=== PATIENT | male | born 1980 | race Caucasian/White ===

== ENCOUNTER 2018-11-25 11:45 | Emergency (ER) | payer MEDICAID, SELFPAY ==
[2018-11-25 11:48] VITALS: BP 140/81; PULSE 85; RESP 18; TEMP 37.2; O2SAT 97
--- NOTE | 2018-11-25 12:40 | DI.RAD_ITS ---
SYMPTOMS/DIAGNOSIS: TRAUMA, PAIN TO LATERAL METACARPAL, PAIN TO ANTERIOR ANKLE AFTER BLUNT TRAUMA RIGHT ANKLE: Three views. No acute fracture or dislocation is identified. RIGHT HAND: Three views. Comparison 06/18/16. There is a comminuted fracture of the mid shaft of the right metacarpal. The distal fracture is displaced medially approximately one-half shafts width. There is also dorsal displacement. There is volar angulation of the fracture noted. There is associated soft tissue swelling. No other fracture or dislocation is present. IMPRESSION: Comminuted fracture of the right fourth metacarpal.
--- NOTE | 2018-11-25 13:35 | ED.GENADUL_ITS ---
Discharge Plan Disposition Patient Disposition: HOME Condition: Stable Discharge Details Chief Complaint: Orthopedic Clinical Impression: Fracture of fourth metacarpal bone of right hand, Contusion of ankle, right Primary Care Provider: Ike Herrera ED Provider: Helder Max Home Meds and New Rx's Prescriptions: No Action bupropion HCl [Wellbutrin] 100 MG tablet 450 mg PO DAILY RF: 0 Discharge Instructions Instructions: Contusion in Adults (ED), Boxer Fracture (ED) Additional Instructions: He may continue to take [id number] pain medication such as 600 of ibup rofen along with 1000 mg of acetaminophen at the same time every 6 hours. You may apply ice to help with swelling and return for any new or significant worsening of symptoms otherwise call the orthopedic office on Wednesday for arrangement of follow-up appointment Referrals: Sergio Kumar MD [ [facility] STAFF PHYSICIAN] - (Please call the orthopedic office on Wednesday for arrangement of follow-up appointment) Discharge Data Discharge Date/Time-TO BE ENTERED AT DEPARTURE: 11/25/18 14:16 Medical Decision Making Patient had disagreement this morning and punched a door and kicked a desk. Patient has tenderness to the anterior ankle without any other obvious signs of trauma and patient is ambulatory and weightbearing. Patient's right hand does have tenderness to the fourth and fifth midshaft metacarpal. Patient has reported previous fracture to similar area but given tenderness and mechanism of injury plan to do radiological imaging of the ankle and hand to rule out acute fracture Review of imaging shows a displaced fourth metacarpal fracture. no acute ankle findings. Physical exam shows no rotation to the finger so patient placed in orthoglass boxers splint and put on orthopedic follow-up list. HPI General Mode of arrival: ambulatory . Date/Time Provider Initiated Documentation: 11/25/18 11:55 . Limitations to Documentation: no limitations . Information obtained by: patient and RN notes reviewed . History of Present Illness 38 year old M presents to the emergency department with the chief complaint of right hand injury, right foot injury, described as moderate, with intensity rated at 6. Quality is described as aching, and is localized to the right, upper extremity and lower extremity. Patient started experiencing this hour(s) (4) and it has been constant. No relieving factors improve symptom(s), Patient notes no other symptoms.. Patient did receive the following treatments prior to arrival, none Related Data Home Medications Medication Instructions Recorded Confirmed bupropion HCl [Wellbutrin] 450 mg PO DAILY 08/27/12 11/25/18 Allergies Allergy/AdvReac Type Severity Reaction Status Date / Time No Known Allergies Allergy Unverified 11/25/18 11:53 General Stated Complaint: Orthopedic PAULA: 3 Review of Systems Musculoskeletal Reports as per HPI, Denies numbness and Denies tingling Integumentary/Breasts Denies rash, Denies sores and Denies wounds Neurologic Denies numbness and Denies tingling PFSH Social History Smoking/Tobacco Use Status: Current every day Alcohol Intake: never Drug use: Current Sobriety Do you feel safe at home: Yes Do you feel safe in your relationship?: Yes Exam Const General: cooperative and no acute distress Orientation: alert, awake and oriented x3 Resp Effort & Inspection: normal respiratory effort and able to speak in complete sentences Cardio Rate: regular rate Rhythm: regular rhythm Extrem Right upper extremity: elbow/forearm Details: normal to inspection and normal ROM; no tenderness, wrist Details: normal to inspection and normal ROM; no tenderness and hand Details: neuromotor exam normal, neurosensory exam normal, tenderness Location: of the dorsal hand Location: over the 4th metacarpal and over the 5th metacarpal, vascular exam Details: radial pulse present and normal capillary refill, abnormal ROM of finger Details: pain with active ROM Location: of the 3rd digit, of the 4th digit and of the 5th digit and swelling Location: of the dorsal hand Location: over the 3rd metacarpal, over the 4th metacarpal and over the 5th metacarpal Right lower extremity: knee Details: normal to inspection; no tenderness, ankle Details: normal to inspection, tenderness Location: anteriorly and normal ROM; no swelling, edema, no abrasions, no lacerations and no ecchymosis and foot Details: normal capillary refill, normal to inspection and toes with normal ROM; no tenderness Course Vital Signs Temperature 37.2 C 11/25/18 11:48 Pulse 85 11/25/18 11:48 Respiratory Rate 18 11/25/18 11:48 Blood Pressure 140/81 11/25/18 11:48 Pulse Oximetry 97 11/25/18 11:48 Temperature 37.2 C 11/25/18 11:48 Temperature Source Skin 11/25/18 11:48 Pulse 85 11/25/18 11:48 Respiratory Rate 18 11/25/18 11:48 Respiratory Effort 11/25/18 11:54 Blood Pressure 140/81 11/25/18 11:48 Blood Pressure Position Sitting 11/25/18 11:48 Pulse Oximetry 97 11/25/18 11:48 Oxygen Delivery Method Room Air 11/25/18 11:48 Oxygen Flow Rate 0 11/25/18 11:48 Pain Level 8 11/25/18 12:38
[2018-11-25 14:16] VITALS: BP 140/81; PULSE 85; RESP 18; TEMP 37.2; O2SAT 97
== END 2018-11-25 14:16 | disposition home or self-care (01) ==
PROVIDERS: Emergency Provider Nurse Practitioner Family; PCP Nurse Practitioner Family
DX: S62.314A Displaced fracture of base of fourth metacarpal bone, right hand, initial encounter for closed fracture (principal); S90.01XA Contusion of right ankle, initial encounter; W22.09XA Striking against other stationary object, initial encounter
CPT/HCPCS: 26600; 99283; 73130; 73610; 99282

== ENCOUNTER 2018-11-29 10:54 | Outpatient (CLI) | payer MEDICAID, SELFPAY ==
--- NOTE | 2018-11-29 10:40 | DI.RAD_ITS ---
SYMPTOMS/DIAGNOSIS: S/P REDUCTION RT HAND RIGHT HAND: Comparison is made with 2Aug19. A cast is in place. There has been no change in the alignment of the fourth metacarpal fracture. The bones are somewhat obscured by overlying cast material.
== END 2018-11-29 11:14 ==
PROVIDERS: PCP Nurse Practitioner Family; Visit Provider Physician Assistant
DX: S62.324D Displaced fracture of shaft of fourth metacarpal bone, right hand, subsequent encounter for fracture with routine healing (principal)
CPT/HCPCS: 73130

== ENCOUNTER 2019-02-02 15:11 | Emergency (ER) | payer MEDICAID, SELFPAY ==
[2019-02-02 15:14] VITALS: BP 139/85; PULSE 103; RESP 16; TEMP 36.3; O2SAT 96
--- NOTE | 2019-02-02 15:21 | ED.GENADUL_ITS ---
Discharge Plan Disposition Patient Disposition: HOME Condition: Good Discharge Details Chief Complaint: EarProblem Clinical Impression: Otitis media Primary Care Provider: Ike Herrera ED Provider: Jenniffer Mendez Home Meds and New Rx's Prescriptions: New amoxicillin-pot clavulanate [Augmentin] 875-125 mg tablet 1 tab PO BID Qty: 20 RF: 0 albuterol sulfate [Proventil HFA] 90 mcg/actuation HFA aerosol inhaler 2 puff IH Q6H PRN (Reason: shortness of breath or wheezing) Qty: 8 RF: 0 No Action bupropion HCl [Wellbutrin] 100 MG tablet 450 mg PO DAILY RF: 0 Discharge Instructions Instructions: Otitis Media (ED) Additional Instructions: Drink plenty of fluids. Rest activities as tolerated. Use inhaler as prescribed. Use antibiotic as prescribed. Observe for any signs of dehydration, worsening symptoms, elevated fevers, difficulty breathing or increase in ill feeling. Have immediate reevaluation for any concerns or worsening as discussed. Recheck with your primary care doctor for reevaluation this upcoming week. Discharge Data Discharge Date/Time-TO BE ENTERED AT DEPARTURE: 02/02/19 19:20 Medical Decision Making <VAIBHAV Vargas - Last Filed: 02/06/19 23:05> Patient is a 38-year-old male presenting today with chief complaint of URI with left ear pain. He reports URI symptoms began approximately week and half ago. Initially, she was endorsing cough, nasal congestion, runny nose, sore throat. Reports the cough is progressive and worsening and he has been bringing up more thick sputum. Denies any shortness of breath, no wheezing. No recent travel. No recent antibiotics. States that 4 days ago, he began having left ear pain. Patient did have tubes child. Has not noted any drainage. No change in his hearing. On exam, patient appears pale and generally unwell. His left tympanic membrane is erythematous, retracted. No palpable lymphadenopathy, no mastoid tenderness. Patient is crackles in the right lower lobe. Mild discomfort in the low central abdomen. Patient complains of fairly vague. He does have findings suggestive of acute otitis media. I remain concerned for possible pneumonia. Given the patient's color and overall appearance, I am also concerned for possible chronic versus acute other etiology driving his current appearance. Will obtain screening labs, chest x-ray. Will obtain influenza and urinalysis. Discussed plan of the patient is in agreement. He reports diminished appetite and p.o. intake. Will give a liter bolus. Patient was tachycardic in the 120s when he walked in, after sitting, heart rate came down to 102. At the end of my shift, care was transitioned to Maxine Peralta PA-C with imaging and labs are pending. <VAIBHAV French - Last Filed: 02/02/19 18:48> 38-year-old generally well healthy man presents for 2 weeks of illness for which she reports in the last 5 days he has had significantly decreased p.o. intake both food and fluid. Patient is feeling mildly improved after an initial liter of LR. A second liter of normal saline was provided in addition to Toradol and a breathing treatment as patient was noted to be moderately wheezy. Patient's color looks normal at this time. He is feeling significantly improved. His labs do reveal a leukocytosis which given his 2 weeks of illness I do not feel is unreasonable. Patient tachycardia improved, oxygenation improved and he feels appropriate for discharge. Patient is noted to have a moderate left otitis media for which I will provide Augmentin for both sinus coverage as well. Inhaler provided for home. Patient feels stable for discharge home at this time and is requesting discharge home and prefer not to pursue any additional testing or inpatient treatment. Patient encouraged to follow-up with his primary care doctor next week, noted to have uro-bili and bili in his urine. Recommended PCP follow-up. Patient reports his understanding and agrees with plan of care. The patient was stable and requested discharge. Prior to discharge, my usual and customary return precautions were reviewed with the patient - this included follow-up instructions and reasons to return to the Emergency Department if conditions worsens, does not improve as expected, or other new concerns arise. HPI <VAIBHAV Vargas - Last Filed: 02/06/19 23:05> General Mode of arrival: ambulatory . Date/Time Provider Initiated Documentation: 02/02/19 15:15 . Limitations to Documentation: no limitations . Information obtained by: patient and RN notes reviewed . History of Present Illness 38 year old M presents to the emergency department with the chief complaint of left ear pain, described as moderate, Quality is described as aching, and is localized to the face. Patient reports no radiation. Patient started experiencing this day(s) (4) and it has been constant. No relieving factors improve symptom(s), No exacerbating factors reported . Patient notes cough, loss of appetite, malaise, nausea/vomiting (nausea, no vomiting) and weakness (generalized); denies chest pain, diaphoresis, fever/chills, headaches, rash, shortness of breath and syncope. Patient did receive the following treatments prior to arrival, none Related Data Home Medications Medication Instructions Recorded Confirmed bupropion HCl [Wellbutrin] 450 mg PO DAILY 08/27/12 02/02/19 albuterol sulfate [Proventil HFA] 2 puff IH Q6H PRN #8 gm 02/02/19 amoxicillin-pot clavulanate 1 tab PO BID #20 tab 02/02/19 [Augmentin] Previous Rx's Medication Instructions Recorded albuterol sulfate [Proventil HFA] 2 puff IH Q6H PRN #8 gm 02/02/19 amoxicillin-pot clavulanate 1 tab PO BID #20 tab 02/02/19 [Augmentin] Allergies Allergy/AdvReac Type Severity Reaction Status Date / Time No Known Allergies Allergy Unverified 02/02/19 15:19 General Stated Complaint: EarProblem PAULA: 4 Review of Systems <VAIBHAV Vargas - Last Filed: 02/06/19 23:05> Constitutional Constitutional: Reports as per HPI, Denies chills, Reports fatigue, Denies fever(s), Denies headache(s), Reports lethargy, Reports malaise and Reports poor appetite Eyes Eyes: Reports as per HPI, Denies change in vision, Denies eye discharge and Denies irritation ENT Ears, Nose, Mouth, and Throat: Reports as per HPI, Denies dental pain, Denies ear discharge, Reports otalgia (left), Denies headache(s), Reports nasal congestion, Reports nasal discharge, Denies neck mass, Denies odynophagia, Denies sinus pain, Denies sinus pressure, Reports sore throat and Denies throat swelling Cardiovascular Cardiovascular: Reports as per HPI, Denies chest pain and Denies dyspnea Respiratory Respiratory: Reports as per HPI, Reports cough, Denies hemoptysis, Reports excessive phlegm production, Denies pain on inspiration, Denies pain with cough, Denies dyspnea and Denies wheezing Gastrointestinal Gastrointestinal: Reports as per HPI, Denies abdominal pain, Denies change in bowel habits, Reports nausea, Denies odynophagia and Denies vomiting Genitourinary Genitourinary: Denies hematuria, Denies difficulty urinating, Denies dysuria, Denies flank pain, Denies penile discharge, Denies testicular mass and Denies testicular pain Musculoskeletal Musculoskeletal: Reports myalgias (intermittent) Integumentary/Breasts Skin/Breast: Reports as per HPI and Denies rash Neurologic Neurologic: Reports as per HPI and Denies headache(s) Endocrine Endocrine: Reports fatigue Allergic/Immunologic Allergic/Immunologic: Denies throat swelling and Denies wheezing PFSH <VAIBHAV Vargas - Last Filed: 02/06/19 23:05> Social History Smoking/Tobacco Use Status: Current every day Alcohol Intake: never Drug use: Current Sobriety Do you feel safe at home: Yes Do you feel safe in your relationship?: Yes Exam <VAIBHAV Vargas - Last Filed: 02/06/19 23:05> Const General: cooperative, not healthy appearing, comfortable, no acute distress, well developed and well groomed Nutritional Appearance: average body habitus and well nourished Orientation: alert and awake [facility] Head: normal to inspection, normocephalic and atraumatic Ears: hearing grossly normal bilaterally, external ears normal, TM normal on the right (scarring noted, otherwise WNL), left TM abnormal (erythematous, retracted), mastoids normal and no periauricular adenopathy General nose exam: external nose normal and nares normal Face and sinus: normal facial exam, sinuses nontender and face symmetric Mouth: oral mucosae normal, lip normal, tongue normal, oropharynx normal and moist mucous membranes Teeth and gingiva: dentition normal Throat: posterior oropharynx normal, tonsils normal and uvula midline Eyes General: appearance normal, both eyes and all related structures Neck Neck: normal visual inspection, full ROM, no lymphadenopathy and no meningeal signs Resp Effort & Inspection: normal respiratory effort, able to speak in complete sentences and no respiratory distress Auscultation: crackles on the right in the lower lung murdock, no rales, no rhonchi and no wheezes Cardio Rate: regular rate Rhythm: regular rhythm Heart Sounds: S1 normal and S2 normal GI Inspection: normal to inspection, no edema, non-distended and no obesity Palpation: soft, no hepatosplenomegaly, not firm, no guarding, no hernias, no masses, not rigid and tender (low central pain) Percussion: normal to percussion Auscultation: normal bowel sounds Skin General skin exam: no rashes or lesions noted Neuro General: alert and awake Cognition: normal cognition Speech: speech normal Gait: normal gait Psych Appearance: grossly normal and well kempt Mental Status: mental status grossly normal Speech and Movement: speech and movement normal Course <VAIBHAV Vargas - Last Filed: 02/06/19 23:05> Vital Signs Vital signs: Vital Signs Temperature 36.3 C L 02/02/19 15:14 Pulse 103 H 02/02/19 15:14 Respiratory Rate 16 02/02/19 15:14 Blood Pressure 139/85 02/02/19 15:14 Pulse Oximetry 96 02/02/19 15:14 Temperature 36.3 C L 02/02/19 15:14 Temperature Source Skin 02/02/19 15:14 Pulse 103 H 02/02/19 15:14 Respiratory Rate 16 02/02/19 15:14 Respiratory Effort 02/02/19 15:14 Blood Pressure 139/85 02/02/19 15:14 Blood Pressure Position Sitting 02/02/19 15:14 Pulse Oximetry 96 02/02/19 15:14 Comment 02/02/19 15:14 Sign Out <VAIBHAV Vargas - Last Filed: 02/06/19 23:05> Sign Out Data: Sign Out Comment: Care transition to Maxine Peralta PA-C with labs and imaging pending. Last updated by Nisreen Lee PA at 02/02/19 16:06
[2019-02-02] MEDS: Lactated Ringers 1,000 ML 1000 ML IV (15:40)
[2019-02-02] MEDS: Normal Saline Flush 10 ML SYR IVP (15:40)
--- NOTE | 2019-02-02 15:46 | DI.RAD_ITS ---
EXAM: XR CHEST 2V PA LATERAL INDICATION: cough. COMPARISON: ABD FLAT UPRIGHT PA CHEST from 06/12/2012 TECHNIQUE: 2D digital imaging was performed. FINDINGS: The heart is not enlarged. The lungs are clear and well expanded. No pleural effusion seen. IMPRESSION: No evidence of acute process.
[2019-02-02 15:57] LABS: Abs Immature Grans 0.05 k/cumm (0.0-0.09); Absolute Basophil Count 0.03 k/cumm (0.0-0.2); Absolute Eosinophil Count 0.28 k/cumm (0.0-0.7); Absolute Lymphocyte Count 1.83 k/cumm (1.2-3.4); Absolute Monocyte Count 0.98 k/cumm (0.11-0.7); Basophils % 0.2; Eosinophils % 1.7; HCT 43.3 % (40.0-50.0); HGB 14.7 g/dL (13.5-17.5); Immature Grans % 0.3; Lymphocytes % 11.2; Mean Corp. HGB Concentration 33.9 g/dL (32.0-36.0); Mean Corpuscular Hemoglobin 31.5 pg (27.0-33.0); Mean Corpuscular Volume 92.7 fL (80-95); Mean Platelet Volume 11.1 fL (8.0-11.0); Neutrophils % 80.6; Platelet Count 244 x1000/uL (130-400); RBC 4.67 m/cumm (4.50-6.00); RBC Distribution Width 13.4 % (11.8-14.1)
[2019-02-02 16:01] LABS: Absolute Neutrophil Count 13.14 k/cumm (1.2-6.7)
[2019-02-02 16:05] LABS: ALT 15 U/L (16-63); AST 14 U/L (15-37); Albumin 3.7 g/dL (3.4-5.0); Alkaline Phosphatase 106 U/L (46-116); Anion Gap 11.2 mmol/L (3-11); BUN 7 mg/dL (7-18); Bilirubin, Total 0.5 mg/dL (0.2-1.0); CO2 26.8 mmol/L (21.0-32.0); CREATININE 1.19 mg/dL (0.70-1.30); Calcium 8.8 mg/dL (8.5-10.1); Chloride 103 mmol/L (98-107); Glucose 98 mg/dL (70-100); Potassium 3.5 mmol/L (3.5-5.1); Sodium 141 mmol/L (136-145); Total Protein 7.8 g/dL (6.4-8.2)
[2019-02-02 16:41] LABS: Bilirubin Small (Negative); Blood Negative (Negative); Clarity Clear (Clear); Glucose Negative (Negative); Ketones Trace mg/dL (Negative); Leukocyte Esterase Negative (Negative); Nitrite Negative (Negative)
[2019-02-02 17:01] LABS: Bacteria Negative HPF (Negative); Crystals Negative HPF (Negative); Epithelial Cells Negative HPF (Negative); Other Cells Negative (Negative); RBC Negative (0-2); WBC 0-2 HPF (0-5)
[2019-02-02 17:02] LABS: C & S Indicated? No; Casts Negative LPF (Negative); Mucus Moderate (Negative)
[2019-02-02] MEDS: Normal Saline 1,000 ML 1000 ML IV (17:20)
[2019-02-02] MEDS: Ketorolac 15 MG/ML VIAL IVP (17:25)
[2019-02-02 17:30] VITALS: RESP 2; RESP 4
[2019-02-02] MEDS: Albuterol/Ipratropium 3 ML UPD VIAL UPD (17:30)
[2019-02-02 18:00] VITALS: RESP 8
[2019-02-02 18:40] VITALS: BP 126/69; PULSE 94; RESP 20; TEMP 36.3; O2SAT 94
[2019-02-02 19:20] VITALS: BP 126/69; PULSE 94; RESP 20; TEMP 36.3; O2SAT 94
== END 2019-02-02 19:20 | disposition home or self-care (01) ==
PROVIDERS: Physician Assistant; Emergency Provider Physician Assistant; PCP Nurse Practitioner Family
DX: H66.92 Otitis media, unspecified, left ear (principal)
CPT/HCPCS: 80053; 87449; 96361; 96374; 99284; 71046; 81003; 81015; 83605; 85025; J1885; J7620

== ENCOUNTER 2019-10-12 07:48 | Outpatient (CLI) | payer MEDICAID, SELFPAY ==
--- NOTE | 2019-10-12 | DI.MRI_ITS ---
EXAM: MR BRAIN WO/W CLINICAL HISTORY: OPTIC NEURITIS, ? MS LESIONS AND COMPRESSIVE LESIONS. TECHNIQUE: Multiplanar multisequence MRI of the brain was performed. CONTRAST MATERIAL: IV Contrast: ML of Dotarem contrast administered. COMPARISON: MR MR ORBIT FACIAL NECK WO/W from 10/12/2019 FINDINGS: VENTRICLES AND EXTRA AXIAL SPACES: Normal in size and morphology for the patient's age. HEMORRHAGE: None. CEREBRAL PARENCHYMA: There are abnormal high signal foci in the white matter, some of which are periv entricular in location. Largest lesions are seen adjacent to the posterior horn of the right lateral ventricle. There are early are lesions superior to the left lateral ventricle. Other smaller foci are seen. A right temporal lobe lesion is also present. No focus of restricted diffusion to suggest acute infarct. No space-occupying lesion identified. MIDLINE SHIFT: None. BRAINSTEM/CEREBELLUM: Normal. CALVARIUM: Normal. ENHANCEMENT: No abnormal enhancing lesions are seen. VISUALIZED PARANASAL SINUSES/MASTOIDS: Mild ethmoid sinus mucous retention.. Orbits: Symmetric globes. Symmetric optic nerves and extra-ocular muscles. No abnormal enhancement of the optic nerves.. Normal [id number] vasculature. Pituitary is unremarkable. IMPRESSION: Multiple high-signal foci in the white matter, some in a periventricular location, consistent with mu ltiple sclerosis. No enhancing lesions are seen. The optic nerves appear normal.. DATA REPOSITORY:
[2019-10-12] MEDS: Normal Saline Flush 10 ML SYR IVP (08:46)
[2019-10-12] MEDS: Gadoterate meglumine 20 ML VIAL IVP (08:46)
== END 2019-10-12 08:08 ==
PROVIDERS: PCP Nurse Practitioner Family; Visit Provider Optometrist
DX: H46.8 Other optic neuritis (principal); G35 Multiple sclerosis; R90.82 White matter disease, unspecified
CPT/HCPCS: 70553; 70543

== ENCOUNTER 2019-11-30 12:09 | Outpatient (REF) | payer MEDICAID, SELFPAY ==
[2019-11-30 14:35] LABS: HCT 45.4 % (40.0-50.0); HGB 15.3 g/dL (13.5-17.5); MCH 33.6 pg (27.0-33.0); MCHC 33.7 % (32.0-36.0); MCV 99.6 fL (80-95); MPV 11.5 fL (8.0-11.0); Platelet Count 235 10^3/uL (130-400); RBC 4.56 10^6/uL (4.36-5.78); RDW 13.2 % (11.8-14.1); RDW-SD 48.5 fL
[2019-11-30 14:49] LABS: ALT 28 U/L (16-63); AST 19 U/L (15-37); Albumin 4.1 g/dL (3.4-5.0); Alkaline Phosphatase 90 U/L (46-116); Anion Gap 10.1 mmol/L (3-11); BUN 13 mg/dL (7-18); Bilirubin, Total 0.3 mg/dL (0.2-1.0); CO2 26.9 mmol/L (21.0-32.0); CREATININE 1.14 mg/dL (0.70-1.30); Calcium 9.8 mg/dL (8.5-10.1); Calculated LDL 139 mg/dL (<100); Chloride 105 mmol/L (98-107); Cholesterol 246 mg/dL (<200); Glucose 95 mg/dL (74-106); HDL Cholesterol 79 mg/dL (40-60); Potassium 4.4 mmol/L (3.5-5.1); Sodium 142 mmol/L (136-145); Total Protein 7.1 g/dL (6.4-8.2); Triglyceride 142 mg/dL (<150)
[2019-12-01 09:48] LABS: Hepatitis C Ab w Rflx HCV PCR Negative (Negative)
[2019-12-01 10:08] LABS: HIV-1/2 Ag & Ab Screen Negative (Negative)
== END 2019-11-30 12:29 ==
LOC: NCHCN 12:09
PROVIDERS: PCP Nurse Practitioner Family; Visit Provider Nurse Practitioner Family
DX: Z13.220 Encounter for screening for lipoid disorders (principal); G35 Multiple sclerosis; Z00.00 Encounter for general adult medical examination without abnormal findings
CPT/HCPCS: 80053; 80061; 85027; 86803; 87389

== ENCOUNTER 2023-02-10 01:57 | Emergency (ER) | payer MEDICAID, SELFPAY ==
[2023-02-10 02:01] VITALS: BP 165/113; PULSE 87; RESP 16; TEMP 36.8; O2SAT 100
--- NOTE | 2023-02-10 02:10 | W.ED.GENAD ---
Discharge Plan Disposition Patient Disposition: Home Discharge Details Clinical Impression: Pain, dental Primary Care Provider: Ike Wynn ED Provider: Blake Su Home Meds and New Rx's Prescriptions: New amoxicillin-pot clavulanate 875-125 mg tablet 1 tab PO BID Qty: 20 0RF Discontinued amoxicillin-pot clavulanate [Augmentin] 875-125 mg tablet 1 tab PO BID Qty: 20 0RF No Action bupropion HCl [Wellbutrin] 100 MG tablet 450 mg PO DAILY albuterol sulfate [Proventil HFA] 90 mcg/actuation HFA aerosol inhaler 2 puff IH Q6H PRN (Reason: shortness of breath or wheezing) Qty: 8 0RF Discharge Instructions Instructions: Toothache (ED) Additional Instructions: Please take 800 mg of ibuprofen every 6 hours and 1000 mg of Tylenol every 6 hours to help with the inflammation and pain. These are the maximum doses. Please take the antibiotic as directed to help with the infection in your tooth. Please use the dental list that we have provided to contact the dentist for prompt follow-up and evaluation for tooth removal. If you notice any worsening of your symptoms, or any new symptoms such as difficulty swallowing, difficulty breathing, vomiting, diarrhea, fever, chills, shortness of breath, chest pain, numbness, weakness, or fainting , please return immediately to the emergency department for reevaluation. Please follow up with your primary care provider as soon as possible for reassessment and reevaluation. As always, it was a pleasure participating in your medical care today. Medical Decision Making This is a pleasant 42-year-old male who presents today for evaluation of dental pain. Patient has a history of notable dental caries and has been slowly getting the majority of his teeth removed. Patient states that over the last few days his left upper teeth have been causing pain. He denies fever or chills. He did contact his dentist who recommends he comes in here to get his infection managed and will then follow-up outpatient for tooth extraction. Patient denies any other complaints at this time. He did take Tylenol and Motrin. This only minimally improved his symptoms. He denies difficulty swallowing or drinking. He is not on any antibiotics currently. Exam demonstrates notably poor dentition, left upper teeth demonstrate no evidence of periapical abscess. No drainage or discharge. No signs of Ludewig's angina. No indication for I&D at this time. We will start the patient on Augmentin for antibiotic coverage, he states he does not need any other dental providers as his is already taking care of him. We did offer ibuprofen which he accepted. Did offer dental block which the patient refused. Patient will be discharged home with a first dose of antibiotics here. I did discuss with the patient that if his symptoms worsen, swelling increases, or he has a change of mind for his dental block he can always come back for it later. Discussed red flags for which to return. I have extensively reviewed the treatment plan and discharge instructions with the patient. I have addressed all patient concerns at this time. The patient was made aware of what symptoms to monitor for that would warrant a return to the emergency department. Discussed the plan with the patient, they demonstrate verbal understanding and agreement with our assessment and plan at this time. The documentation in this chart was dictated using [employer] dictation software. Please excuse any dictation errors. HPI General Date/Time Provider Initiated Documentation: 02/10/23 01:58. HPI Narrative: This is a pleasant 42-year-old male who presents today for evaluation of dental pain. Patient has a history of notable dental caries and has been slowly getting the majority of his teeth removed. Patient states that over the last few days his left upper teeth have been causing pain. He denies fever or chills. He did contact his dentist who recommends he comes in here to get his infection managed and will then follow-up outpatient for tooth extraction. Patient denies any other complaints at this time. He did take Tylenol and Motrin. This only minimally improved his symptoms. He denies difficulty swallowing or drinking. He is not on any antibiotics currently. Related Data Home Medications Medication Instructions Recorded Confirmed bupropion HCl 100 mg tablet 450 mg PO DAILY 08/27/12 02/02/19 (Wellbutrin) albuterol sulfate 90 mcg/actuation 2 puff inhalation Q6H PRN 02/02/19 aerosol inhaler (Proventil HFA) shortness of breath or wheezing #8 grams amoxicillin 875 mg-potassium 1 tab PO BID #20 tabs 02/10/23 clavulanate 125 mg tablet Previous Rx's Medication Instructions Recorded albuterol sulfate 90 mcg/actuation 2 puff inhalation Q6H PRN 02/02/19 aerosol inhaler (Proventil HFA) shortness of breath or wheezing #8 grams amoxicillin 875 mg-potassium 1 tab PO BID #20 tabs 02/10/23 clavulanate 125 mg tablet Allergies Allergy/AdvReac Type Severity Reaction Status Date / Time No Known Allergies Allergy Unverified 02/02/19 15:19 General Stated Complaint: DentalOral PAULA: 5 Review of Systems All systems reviewed & are unremarkable except as noted in HPI and below PFSH All Active Problems Pain, dental (Acute) Fracture of fourth metacarpal bone of right hand (Acute 11/25/18) Social History Smoking/Tobacco Use Status: Current every day Smoking risk assessment performed?: Yes Alcohol Intake: never Drug use: Current Sobriety Do you feel safe at home: Yes Do you feel safe in your relationship?: Yes Exam Narrative Exam Narrative: 1.Const: Well-nourished, Well-developed, appearing stated age 2.Eyes: PERRL, no conjunctival injection, and symmetrical lids. 3.ENT: Atraumatic external nose and ears. Moist MM. Neck: Symmetric, trachea midline, No thyromegaly. Notably poor dentition throughout. Left upper teeth demonstrate old decaying teeth, no evidence of swelling or periapical abscess at this point. No evidence of Ludewig's angina. No signs of airway compromise 4.CVS: +S1/S2, No murmurs or gallops. Peripheral pulses 2+ and equal in all extremities. Brisk capillary refill in all extremities. 5.RESP: Unlabored respiratory effort. Clear to auscultation bilaterally. No wheezes rales or rhonchi 6.GI: Soft, Nontender/Nondistended, No hepatosplenomegaly. No guarding or rebound. 7.MSK: Normocephalic/Atraumatic, Extremities w/o deformity or ttp No cyanosis or clubbing, Normal movement of all extremities 8.Skin: Warm, Dry. No rashes or lesions. 9.Neuro: slurry tank tender II-XII grossly intact. Sensation grossly intact, no focal neurologic deficits. 10.Psych: (AAO) x3. Appropriate mood and affect Course Vital Signs Vital signs: Vital Signs Temperature 36.8 C 02/10/23 02:01 Pulse 87 02/10/23 02:01 Respiratory Rate 16 02/10/23 02:01 Blood Pressure 165/113 H 02/10/23 02:01 Pulse Oximetry 100 02/10/23 02:01 Temperature 36.8 C 02/10/23 02:01 Temperature Source Oral 02/10/23 02:01 Pulse 87 02/10/23 02:01 Respiratory Rate 16 02/10/23 02:01 Respiratory Effort Normal 02/10/23 02:07 Blood Pressure 165/113 H 02/10/23 02:01 Pulse Oximetry 100 02/10/23 02:01 Oxygen Delivery Method Room Air 02/10/23 02:01 Oxygen Flow Rate 0 02/10/23 02:01 Pain Level 10 02/10/23 02:07
[2023-02-10] MEDS: Amox. 875/Clav. 125, 2 TABS/BTL 1 TAB PO (02:15)
[2023-02-10] MEDS: Ibuprofen 800 MG TAB PO (02:15)
== END 2023-02-10 02:17 | disposition home or self-care (01) ==
LOC: ER 02:23
PROVIDERS: Emergency Provider Student in an Organized Health Care Education/Training Program; PCP Nurse Practitioner Family
DX: K08.89 Other specified disorders of teeth and supporting structures (principal); K02.9 Dental caries, unspecified; F17.210 Nicotine dependence, cigarettes, uncomplicated
CPT/HCPCS: 99283; 99282

== ENCOUNTER 2023-09-09 14:54 | Outpatient (REF) | payer MEDICAID, SELFPAY ==
[2023-09-09 20:33] LABS: ALT 62 U/L (16-63); AST 47 U/L (15-37); Alkaline Phosphatase 96 U/L (46-116); Bilirubin, Direct 0.1 mg/dL (0.0-0.2); Bilirubin, Total 0.6 mg/dL (0.2-1.0); Total Protein 7.3 g/dL (6.4-8.2)
== END 2023-09-09 14:55 | disposition home or self-care (01) ==
LOC: NCHCN 14:54
PROVIDERS: PCP Nurse Practitioner Family; Visit Provider Nurse Practitioner Family
DX: R74.01 Elevation of levels of liver transaminase levels (principal)
CPT/HCPCS: 80076

== ENCOUNTER 2024-01-29 23:31 | Emergency (ER) | payer MEDICAID, SELFPAY ==
--- NOTE | 2024-01-29 00:11 | DI.RAD_ITS ---
Exam(s) XR ANKLE RT COMPLETE EXAM: XR ANKLE RT COMPLETE CLINICAL HISTORY: fall, twisted ankle, pain at calcaneous and ankle. TECHNIQUE: 2D digital imaging was performed. Three views. COMPARISON: CR XR ANKLE RT COMPLETE from 11/25/2018 FINDINGS: BONES: Mildly displaced calcaneal fracture extending through the mid body.. No bony destructive lesi on is seen. JOINTS: The ankle mortise is normally aligned. SOFT TISSUE: Swelling. IMPRESSION: Calcaneal fracture. DATA REPOSITORY: RADIATION DOSE DELIVERED:
[2024-01-29 23:37] VITALS: BP 155/93; PULSE 91; RESP 17; TEMP 37.2; O2SAT 97
--- NOTE | 2024-01-29 23:47 | ED.GENADUL_ITS ---
Discharge Plan Disposition Patient Disposition: Home Discharge Details Clinical Impression: Calcaneus fracture, right Primary Care Provider: Frances Dominguez ED Provider: Blake Su Home Meds and New Rx's Prescriptions: No Action bupropion HCl [Wellbutrin] 100 MG tablet 450 mg PO DAILY albuterol sulfate [Proventil HFA] 90 mcg/actuation HFA aerosol inhaler 2 puff IH Q6H PRN (Reason: shortness of breath or wheezing) Qty: 8 0RF omeprazole 20 mg capsule,delayed release(DR/EC) 20 mg PO ONCE Patient Comments: TAKE 1 CAPSULE BY MOUTH ONCE DAILY FOR 1 HOUR PRIOR TO BEDTIME Discharge Instructions Instructions: Foot Fracture ED Additional Instructions: At this time you have evidence of a calcaneal fracture for your right heel. This will take significant time to heal. Please remain nonweightbearing for the next 2 to 3 weeks. You can then gradually apply very mild weight as tolerated with your walking boot. Do this for the next few weeks, and then gradually transition to weightbearing as tolerated with only the walking boot. You can take Tylenol and Motrin to help for pain. You can take 800 mg of Motrin every 6 hours and 1000 mg of Tylenol every 6 hours. These are the maximum doses. Please also apply Voltaren/diclofenac gel to the heel to help with pain control. This can be found [id number] at your local pharmacy. Please ice the area frequently. If you notice that you have significant persistent pain after 1 to 2 weeks, you may require orthopedic follow-up for reassessment. Please take the morphine tablets only as needed for breakthrough pain. If you notice any worsening of your symptoms, or any new symptoms such as vomiting, diarrhea, fever, chills, shortness of breath, chest pain, numbness, weakness, or fainting , please return immediately to the emergency department for reevaluation. Please follow up with your primary care provider as soon as possible for reassessment and reevaluation. As always, it was a pleasure participating in your medical care today. Referrals: Frances Dominguez [Primary Care Provider] - [facility] General Date/Time Provider Initiated Documentation: 01/29/24 23:44 . HPI Narrative: 43-year-old male with a past medical history of asthma, MS, presents today for right ankle pain. Patient presents via ambulance. He states that he jumped down 8 steps and twisted and landed on his right ankle. He denies hitting his head or loss of consciousness. He does admit to drinking beer throughout the day. EMS did give him 35 mg of ketamine prior to arrival for pain control as the patient did not want Tylenol or fentanyl. Patient complains of pain in the ankle and the calcaneus. He denies pain anywhere else. He denies hitting anything else. He denies any other complaints at this time. No loss of consciousness, no knee or hip pain. Related Data Home Medications ?Medication ?Instructions ?Recorded ?Confirmed bupropion HCl 100 mg tablet 450 mg PO DAILY 08/27/12 01/30/24 (Wellbutrin) albuterol sulfate 90 mcg/actuation 2 puff inhalation Q6H PRN 02/02/19 01/30/24 aerosol inhaler (Proventil HFA) shortness of breath or wheezing #8 grams omeprazole 20 mg capsule,delayed 20 mg PO ONCE 01/30/24 01/30/24 release Previous Rx's ?Medication ?Instructions ?Recorded albuterol sulfate 90 mcg/actuation 2 puff inhalation Q6H PRN 02/02/19 aerosol inhaler (Proventil HFA) shortness of breath or wheezing #8 grams Allergies Allergy/AdvReac Type Severity Reaction Status Date / Time No Known Allergies Allergy Unverified 01/30/24 00:02 General Stated Complaint: Orthopedic PAULA: 4 Review of Systems All systems reviewed & are unremarkable except as noted in HPI and below Exam Narrative Exam Narrative: 1.Const: Well-nourished, Well-developed, appearing stated age 2.Eyes: PERRL, no conjunctival injection, and symmetrical lids. 3.ENT: Atraumatic external nose and ears. Moist MM. Neck: Symmetric, trachea midline, No thyromegaly. There is no evidence of raccoon eyes, beltrán sign, CSF rhinorrhea, mastoid tenderness, cranial crepitus, hemotympanum, exophthalmos, or hyphema. Patient demonstrates intact dentition with no signs of tooth avulsion or fracture, no signs of jaw deformity, no evidence of a LeFort's fracture, with an intact palate, nose and orbital region. There is no evidence of a nasal septal hematoma. No proptosis. Jaw closes symmetrically. Airway is clear. 4.CVS: Regular rate and rhythm, Normal s1 and s2. No murmurs, carotid bruits, rubs, or gallops. Radial pulses 2+ bilaterally and symmetric. Dorsalis pedis pulses 2+ bilaterally and symmetric. 2+ capillary refill. No evidence of distant heart sounds. No extremity edema. No evidence of gross hemorrhage. 5.RESP: Airway clear, no obstructions. No abrasions or ecchymosis. Chest movement symmetric with respirations. No chest wall tenderness. Trachea midline. No crepitus. No step offs. No paradoxical movements. Lungs are clear to auscultation bilaterally. No rales, rhonchi, wheezing or stridor. Breath sound symmetric. No Sucking chest wounds. No clinical evidence of significant chest trauma. 6.GI: Soft, Nontender/Nondistended, No hepatosplenomegaly. No guarding or rebound. 7.MSK: Normocephalic/Atraumatic, upper extremities, and left lower extremities w/o deformity or ttp No cyanosis or clubbing, Normal movement of all extremities. Mild swelling over the right ankle, tenderness over the medial and lateral malleoli and the calcaneus. Good sensation and capillary refill throughout. No midline tenderness to palpation over the CTLS spine. Normal ROM in flexion, extension, side bend, and rotation. Patient has +5 out of 5 strength in the lower extremities in dorsiflexion and plantarflexion, knee flexion and extension, hip flexion and extension. Normal strength for dorsiflexion and plantar flexion of the great toe bilaterally. There is +2 over 2 dorsalis pedis pulses bilaterally. There is normal sensation to the skin with light touch at the foot, knee, and hip. Normal saddle sensation. Good sensation over the deep sural nerve area bilaterally. Reflexes are +2 over 4 in the patellar reflex bilaterally. +5 out of 5 strength in the medial, ulnar, radial nerve distribution bilaterally in the hands as well as intact light touch sensation to these dermatomes on the hands 8.Skin: Warm, Dry. No rashes or lesions. 9.Neuro: [employer] II-XII grossly intact. Sensation grossly intact, no focal neurologic deficits. 10.Psych: (AAO) x3. Appropriate mood and affect Course Vital Signs Vital signs: Vital Signs Temperature 37.2 C 01/29/24 23:37 Pulse 91 H 01/29/24 23:37 Respiratory Rate 17 01/29/24 23:37 Blood Pressure 155/93 H 01/29/24 23:37 Pulse Oximetry 97 01/29/24 23:37 Temperature 37.2 C 01/29/24 23:37 Temperature Source Oral 01/29/24 23:37 Pulse 91 H 01/29/24 23:37 Respiratory Rate 17 01/29/24 23:37 Respiratory Effort Normal 01/29/24 23:42 Blood Pressure 155/93 H 01/29/24 23:37 Blood Pressure Position Supine 01/29/24 23:37 Pulse Oximetry 97 01/29/24 23:37 Oxygen Delivery Method Room Air 01/29/24 23:37 Oxygen Flow Rate 0 01/29/24 23:37 Pain Level 2 01/29/24 23:42 Medical Decision Making 43-year-old male with a past medical history of asthma, MS, presents today for right ankle pain. Patient presents via ambulance. He states that he jumped down 8 steps and twisted and landed on his right ankle. He denies hitting his head or loss of consciousness. He does admit to drinking beer throughout the day. EMS did give him 35 mg of ketamine prior to arrival for pain control as the patient did not want Tylenol or fentanyl. Patient complains of pain in the ankle and the calcaneus. He denies pain anywhere else. He denies hitting anything else. He denies any other complaints at this time. No loss of consciousness, no knee or hip pain. Exam demonstrates no evidence of trauma throughout the chest abdomen pelvis head neck and upper extremities. Patient does have mild swelling over the right ankle, tenderness over the medial and lateral malleoli and the calcaneus. Differential includes strain or ligamentous damage, fracture of the ankle, or contusion. Will get x-rays. Will give morphine for pain control. Patient consents to this. He will be placed on the monitor, will monitor closely and reassess. No other evidence of trauma anywhere else to necessitate further imaging. X-ray shows evidence of a comminuted minimally displaced fracture of the right calcaneus. No other significant osseous abnormality. No dislocation. Joint spaces are preserved. Pain is notably improved. is at bedside. We will give crutches for home use to remain nonweightbearing for the next few weeks. Walking boot will also be given as he transitions from nonweightbearing to weightbearing as tolerated. We recommend orthopedic follow-up if his symptoms do not improve at all over the next week or so. Recommend topical NSAID therapy as well as regular systemic NSAIDs. Will give a few tablets of morphine IR for home use for breakthrough pain. Patient remains neurovascularly intact otherwise. No other signs of injury. Patient stable for discharge. Discussed red flags for which to return. I have extensively reviewed the treatment plan and discharge instructions with the patient and their family. I have addressed all patient concerns at this time. The patient and family was made aware of what symptoms to monitor for that would warrant a return to the emergency department. Discussed the plan with the patient and family, they demonstrate verbal understanding and agreement with our assessment and plan at this time. The documentation in this chart was dictated using [employer] dictation software. Please excuse any dictation errors. FINDINGS: Bones/joints: Bone mineralization is age-appropriate. Possible fracture of the lateral tarsal bones. Recommend foot x-rays for further evaluation. There is no evidence of fracture of the ankle. No evidence of dislocation. Noninflamed enthesophyte seen within the region of the Achilles tendon. The joint spaces are adequately preserved; no significant degenerative narrowing and no bony erosion seen. Soft tissues: No radiopaque foreign body present. There is soft tissue swelling present. IMPRESSION: 1. Possible fracture of the proximal lateral tarsal bones. Recommend foot x-rays for further evaluation. 2. There is no evidence of fracture of the ankle. 3. There is soft tissue swelling present. Thank you for allowing us to participate in the care of your patient. Dictated and Authenticated by: Elia Bernard MD 01/30/2024 12:42 AM Eastern Time ([place] & [place]) FINDINGS: Bones/joints: Bone mineralization is age-appropriate. There is a comminuted minimally displaced fracture of the right calcaneus. Consider CT scan for further evaluation. No evidence of dislocation. The joint spaces are adequately preserved; no significant degenerative narrowing and no bony erosion seen. Soft tissues: No radiopaque foreign body present. There is soft tissue swelling present. IMPRESSION: 1. There is a comminuted minimally displaced fracture of the right calcaneus. Consider CT scan for further evaluation. 2. There is soft tissue swelling present. Thank you for allowing us to participate in the care of your patient. Dictated and Authenticated by: Elia Bernard MD 01/30/2024 12:59 AM Eastern Time ([place] & [place]) Quality:SDOH Health Related Social Needs: No Data to Display PFSH All Active Problems (Updated 01/30/24 @ 01:38 by Blake Su DO) Calcaneus fracture, right (Acute) Fracture of fourth metacarpal bone of right hand (Acute 11/25/18) Medical History Rotator cuff arthropathy of both shoulders Surgical History Hx of appendectomy Social History Smoking/Tobacco Use Status: Current every day Tobacco Type: cigarettes Smoking risk assessment performed?: Yes Alcohol Intake: current Alcohol Intake frequency: a few times a week Alcohol type: beer Drug use: Daily Substance use type: marijuana Housing: apartment Do you feel safe at home: Yes Do you feel safe in your relationship?: Yes PAWSS Have you Been Recently Intoxicated or Drunk Within the Last 30 days?: Yes Have you Ever Experienced Previous Episodes of Alcohol Withdrawal?: No Have you ever Experienced Withdrawal Seizures?: No Have you ever Experienced Delirium Tremens(DT)s?: No Have you ever undergone Alcohol Rehabilitation Treatment (i.e, inpt ot outpatient treatment programs)?: No Have you ever Experienced Blackouts?: No Have you ever Combined Alcohol with other Downers within the last 90 days?: Yes Have you ever Combined Alcohol with any other Substance of Abuse during the last 90 days?: Yes Positive Blood Alcohol level on Presentation? [PCS.BAL]: Yes Evidence of Increased Autonomic Activity (i.e. HR>120, tremor, sweating, agitation, nausea)?: No Result: 4
[2024-01-29] MEDS: MORPHine 4 MG/ML SYR IVP (23:56)
[2024-01-30] MEDS: Ketorolac 15 MG/ML VIAL IVP (00:41)
--- NOTE | 2024-01-30 00:42 | DI.VRAD_ITS ---
Addendum created by Elia Bernard MD on 01/30/2024 12:59:43 AM EDT: Possible fracture of the calcaneus recommend foot films for further evaluation. Initial report created on 01/30/2024 12:42:19 AM EDT: PROCEDURE INFORMATION: Exam: XR Right Ankle Exam date and time: 01/30/2024 12:09 AM Age: 43 years old Clinical indication: Other: Fall, twisted ankle, pain at calcaneous and ankle TECHNIQUE: Imaging protocol: Radiologic exam of the right ankle. Views: 3 or more views. COMPARISON: CR XR ANKLE RT COMPLETE 11/25/2018 12:45 PM FINDINGS: Bones/joints: Bone mineralization is age-appropriate. Possible fracture of the lateral tarsal bones. Recommend foot x-rays for further evaluation. There is no evidence of fracture of the ankle. No evidence of dislocation. Noninflamed enthesophyte seen within the region of the Achilles tendon. The joint spaces are adequately preserved; no significant degenerative narrowing and no bony erosion seen. Soft tissues: No radiopaque foreign body present. There is soft tissue swelling present. IMPRESSION: 1. Possible fracture of the proximal lateral tarsal bones. Recommend foot x-rays for further evaluation. 2. There is no evidence of fracture of the ankle. 3. There is soft tissue swelling present. Dictated and Authenticated by: Elia Bernard MD. Ordering:MARYANNE Lozano MD
--- NOTE | 2024-01-30 00:55 | DI.RAD_ITS ---
Exam(s) XR FOOT RT COMPLETE EXAM: XR FOOT RT COMPLETE CLINICAL HISTORY: potential fracture at lateral tarsals. TECHNIQUE: 2D digital imaging was performed. Three views. COMPARISON: No exams were available for comparison FINDINGS: BONES: Comminuted mildly displaced calcaneal fracture fracture extends to the calcaneal cuboid joint anteriorly and to the posterior talocalcaneal joint superiorly. No additional fractures.. No bony d estructive lesion is seen. JOINTS: No dislocation present. SOFT TISSUE: Diffuse swelling. IMPRESSION: Comminuted mildly displaced calcaneal fracture. DATA REPOSITORY: RADIATION DOSE DELIVERED:
--- NOTE | 2024-01-30 00:59 | DI.VRAD_ITS ---
PROCEDURE INFORMATION: Exam: XR Right Foot Exam date and time: 01/30/2024 12:53 AM Age: 43 years old Clinical indication: Other: Potential fracture at lateral tarsals TECHNIQUE: Imaging protocol: Radiologic exam of the right foot. Views: 3 or more views. COMPARISON: CR XR ANKLE RT COMPLETE 01/30/2024 12:09 AM FINDINGS: Bones/joints: Bone mineralization is age-appropriate. There is a comminuted minimally displaced fracture of the right calcaneus. Consider CT scan for further evaluation. No evidence of dislocation. The joint spaces are adequately preserved; no significant degenerative narrowing and no bony erosion seen. Soft tissues: No radiopaque foreign body present. There is soft tissue swelling present. IMPRESSION: 1. There is a comminuted minimally displaced fracture of the right calcaneus. Consider CT scan for further evaluation. 2. There is soft tissue swelling present. Dictated and Authenticated by: Elia Bernard MD. Ordering:MARYANNE Lozano MD
[2024-01-30] MEDS: MORPHine IR 15 MG TAB, 4 TABS/BTL PO (01:49)
--- OUTSIDE RECORDS SUMMARY | 2024-01-30 02:03 | XMS_ITS | Continuity of Care Document ---
Author Organization [facility] Address [address] [place] [address] Care Team Providers Care Staff Research Scientist Name Role Phone Frances Dominguez MD Primary Care Physician Encounter [facility] NBR [id number] Date(s): 02/23/23 - 02/23/23 [facility] [address] [place] [address]- Encounter Diagnosis Multiple sclerosis(Final) - Myelitis, unspecified(Final) - Abnormal findings on diagnostic imaging of other specified body structures (Final) - Deficiency of other specified B group vitamins(Final) - Unspecified optic neuritis(Final) - Personal history of other diseases of the nervous system and sense organs(Final) - Discharge Disposition: Home or Self Care Attending Physician: Jonnie Bello MD Admitting Physician: Jonnie Bello MD Referring Physician: Jonnie Bello MD Allergies, Adverse Reactions, Alerts No Known Allergies Assessment and Plan Future Appointments Diagnostic Tests Pending * Immunofixation, Serum LC 02/23/23 * Protein Elec + Interp, Serum LC 02/23/23 * Stratify JCV(TM) Ab w/Index LC 02/23/23 Future Scheduled Tests Laboratory* CBC w/ Diff 08/25/22 * Comprehensive Metabolic Panel 08/25/22 * Protein Elec + Interp, Serum LC 08/25/22 * Stratify JCV(TM) Ab w/Index LC 08/25/22 Radiology* MRI Brain w/ + w/o Contrast 02/23/23 * MRI Spine Cervical w/ + w/o Contrast 02/23/23 * MRI Spine Thoracic w/ + w/o Contrast 02/23/23 Medications Ocrevus 300 mg/10 mL intravenous solution 0 Refill(s) Start Date: 02/03/22 Status: Ordered omeprazole 20 mg oral delayed release capsule 20 mg = 1 cap, Oral, every night at bedtime Start Date: 08/25/22 Status: Ordered Problem List Condition Confirmation Course Effective Dates Status H ealth Status Informant Abnormal MRI thoracic spine Confirmed Active Abnormal Brain MRI Confirmed Active H/O Acute myelitis Confirmed Active Alcohol abuse Confirmed Active Bipolar Confirmed Active Carpal tunnel syndrome of left wrist Confirmed Active Folate deficiency Confirmed Active H/O: visual disturbance 1 Confirmed Active History of COVID-19 Confirmed Active Human polyomavirus JCV 2 positive Confirmed Active Multiple sclerosis Confirmed Active Optic neuritis Confirmed Active Paroxysmal supraventricular tachycardia Confirmed Active Personality disorder Confirmed Active Vitamin B12 deficiency Confirmed Active Vitamin D deficiency Confirmed Active 1left eye Results Laboratory List Name Date CBC w/ Diff 02/23/23 Comprehensive Metabolic Panel 02/23/23 Folate Level 02/23/23 Automated Diff 02/23/23 Most recent to oldest [Reference Range]: 1 WBC [4.8-10.8 K/mcL] 10.2 K/mcL (02/23/23 3:36 PM) RBC [4.70-6.10 Million/mcL] 4.47 Million /mcL *LOW* (02/23/23 3:36 PM) Neutro Auto [42.2-75.2 %] 64.6 % (02/23/23 3:36 PM) Lymph Auto [20.5-51.1 %] 22.8 % (02/23/23 3:36 PM) [place] Auto [1.7-9.3 %] 6.2 % (02/23/23 3:36 PM) Basophil Auto [0.0-0.8 %] 0.7 % (02/23/23 3:36 PM) BUN [8-26 mg/dL] 9 mg/dL (02/23/23 3:36 PM) Glucose Level [74-106 mg/dL] 84 mg/dL (02/23/23 3:36 PM) Potassium Level [3.5-5.1 mmol/L] 4.5 mmo l/L (02/23/23 3:36 PM) Baso Absolute [0.0-0.2 K/mcL] 0.1 K/mcL (02/23/23 3:36 PM) MCV [80.0-94.0 fL] 99.6 fL *HI* (02/23/23 3:36 PM) AST [15-41 IntlUnit/L] 28 IntlUnit/L (02/23/23 3:36 PM) ALT [17-63 IntlUnit/L] 27 IntlUnit/L (02/23/23 3:36 PM) MCHC [32.0-37.0 g/dL] 33.7 g/dL (02/23/23 3:36 PM) Osmolality [275-295 mOsm/kg] 272 mOsm/kg *LOW* (02/23/23 3:36 PM) Sodium Level [134-143 mmol/L] 137 mmol/L (02/23/23 3:36 PM) Folate Level [>=5.9 ng/mL] 4.4 ng/mL *LOW* (02/23/23 3:36 PM) Lymph Absolute [1.2-3.4 K/mcL] 2.3 K/mcL (02/23/23 3:36 PM) Hct [42.0-52.0 %] 44.5 % (02/23/23 3:36 PM) Calcium Level [8.9-10.3 mg/dL] 9.4 mg/dL (02/23/23 3:36 PM) [place] Absolute [0.1-0.6 K/mcL] 0.6 K/mcL (02/23/23 3:36 PM) Albumin Level [3.5-5.0 g/dL] 4.1 g/dL (02/23/23 3:36 PM) Protein Total [6.5-8.1 g/dL] 6.9 g/dL (02/23/23 3:36 PM) MCH [27.0-31.0 pg] 33.6 pg *HI* (02/23/23 3:36 PM) Neutro Absolute [1.4-6.5 K/mcL] 6.6 K/mc L *HI* (02/23/23 3:36 PM) Bilirubin Total [0.2-1.2 mg/dL] 0.6 mg/d L (02/23/23 3:36 PM) Hgb [14.0-18.0 g/dL] 15.0 g/dL (02/23/23 3:36 PM) Alk Phos [38-130 IntlUnit/L] 86 IntlUnit /L (02/23/23 3:36 PM) MPV [7.4-10.4 fL] 10.8 fL *HI* (02/23/23 3:36 PM) Platelets [130-400 K/mcL] 284 K/mcL (02/23/23 3:36 PM) CO2 [22-32 mmol/L] 25 mmol/L (02/23/23 3:36 PM) Eos Absolute [0.0-0.2 K/mcL] 0.5 K/mcL *HI* (02/23/23 3:36 PM) Chloride Level [98-111 mmol/L] 104 mmol/ L (02/23/23 3:36 PM) RDW-CV [11.5-14.5 %] 13.2 % (02/23/23 3:36 PM) A/G Ratio [1.0-2.5 g/dL] 1.5 g/dL (02/23/23 3:36 PM) BUN/Creat Ratio [8.0-20.0] 9.0 (02/23/23 3:36 PM) Globulin [2.3-3.5 g/dL] 2.8 g/dL (02/23/23 3:36 PM) Imm Gran Absolute [0.00-0.02 K/mcL] 0.05 K/mcL *HI* (02/23/23 3:36 PM) Imm Gran Auto [0.0-0.5 %] 0.5 % (02/23/23 3:36 PM) Slide Review Not Indicated (02/23/23 3:36 PM) Creatinine Level [0.61-1.24 mg/dL] 1.00 mg/dL (02/23/23 3:36 PM) Anion Gap [3.0-12.0] 8.0 (02/23/23 3:36 PM) Eos, Auto [0.00-3.00 %] 5.20 % *HI* (02/23/23 3:36 PM) eGFR CKD-EPI [>=60 mL/min/1.73 m2] 96 mL /min/1.73 m2 (02/23/23 3:36 PM) Social History Social History Type Response Tobacco Current everyday tob acco user Tobacco Use:. 1 pack a day per day. Total pack years: 365. Sex Male Patient Care team information Care Team Personnel Name: Frances Dominguez MD Position: No Access Member Role: Primary Care Physician Address: Address: [address] [place] [phone] [place] Care Team Related Persons Name: BETSY TORRES Address: Home [address] [place] [id number] [facility]
--- OUTSIDE RECORDS SUMMARY | 2024-01-30 02:03 | XMS_ITS | Continuity of Care Document ---
Author Organization [facility] Address [address] [place] [phone] Care Team Providers Care Director Call Name Role Phone Frances Dominguez MD Primary Care Physician Encounter [facility] NBR [id number] Date(s): 03/23/23 - 03/23/[address] [address]- Discharge Disposition: Home or Self Care Attending Physician: Jonnie Bello MD Admitting Physician: Jonnie Bello MD Referring Physician: Jonnie Bello MD Allergies, Adverse Reactions, Alerts No Known Allergies Assessment and Plan Future Appointments Future Scheduled Tests Laboratory* CBC w/ Diff 08/25/22 * Comprehensive Metabolic Panel 08/25/22 * Protein Elec + Interp, Serum LC 08/25/22 * Stratify JCV(TM) Ab w/Index LC 08/25/22 Functional Status 03/23/23 Recent Travel History No recent travel Medications Ocrevus 300 mg/10 mL intravenous solution [...] Vitamin D deficiency Confirmed Active 1left eye Vital Signs Most recent to oldest [Reference Range]: 1 Temperature Temporal Artery [36-38 Deg C ] 36.6 Deg C (03/23/23 9:14 AM) Peripheral Pulse Rate [60-100 bpm] 75 bp m (03/23/23 9:14 AM) Respiratory Rate [12-24 br/min] 18 br/mi n (03/23/23 9:14 AM) Blood Pressure [90-140/60-90 mmHg] 138/9 2mmHg (03/23/23 9:14 AM) Mean Arterial Pressure, Cuff [70-110 mmH g] 107 mmHg (03/23/23 9:14 AM) Social History Social History Type Response Tobacco Current everyday tob acco user Tobacco Use:. 1 pack a day per day. Total pack years: 365. Sex Male Patient Care team information Care Team Personnel Name: Frances Dominguez MD Position: No Access Member Role: Primary Care Physician Address: Address: [address] [place] [phone] [place] Care Team Related Persons Name: BETSY TORRES Address: Home [address], [place] [id number] [facility]
--- OUTSIDE RECORDS SUMMARY | 2024-01-30 02:03 | XMS_ITS | Continuity of Care Document ---
Author Organization [facility] Address [address] [place] [phone] Care Team Providers Care Sand Conditioner Machine Name Role Phone Ike Herrera Primary Care Physician Encounter [facility] NBR [id number] Date(s): 03/17/22 - 03/17/[address] [address] Discharge Disposition: Home or Self Care Attending Physician: Jonnie Bello MD Admitting Physician: Jonnie Bello MD Allergies, Adverse Reactions, Alerts No Known Allergies Assessment and Plan Future Appointments Functional Status 03/17/22 Family Member Travel History No recent t ravel Recent Travel History No recent travel Other exposure to Infectious Disease Non e Medications Ocrevus 300 mg/10 mL intravenous solution 0 Refill(s) Start Date: 02/03/22 Status: Ordered Vital Signs Most recent to oldest [Reference Range]: 1 Temperature Temporal Artery [36-38 Deg C ] 36.6 Deg C (03/17/22 9:05 AM) Peripheral Pulse Rate [60-100 bpm] 74 bp m (03/17/22 9:05 AM) Respiratory Rate [12-24 br/min] 18 br/mi n (03/17/22 9:05 AM) Blood Pressure [90-140/60-90 mmHg] 124/8 6mmHg (03/17/22 9:05 AM) Weight 123.830 kg (03/08/22 2:51 PM) Weight Dosing 123.830 kg (03/08/22 2:51 PM) Height 190.500 cm (03/08/22 2:51 PM) Height/Length Dosing 190.500 cm (03/08/22 2:51 PM) Body Mass Index 34.120 kg/m2 (03/08/22 2:51 PM) Social History Social History Type Response Tobacco Current everyday tob acco user Tobacco Use:. 1 pack a day per day. Total pack years: 365. Sex Male Patient Care team information Personnel Name: Ike Herrera Address: Address: [address] [place] [id number] [place] [address]
--- OUTSIDE RECORDS SUMMARY | 2024-01-30 02:03 | XMS_ITS | Continuity of Care Document ---
Author Organization [facility] Address [address] [place] [address] Care Team Providers Care Buckle Stapler Name Role Phone BELEN HU APRN Primary Care Physician Encounter [facility] NBR [id number] Date(s): 11/04/23 - 11/04/23 [facility] [address] [place] [address]- Encounter Diagnosis Biceps tendinitis of right shoulder(Discharge Diagnosis) - 11/04/23 Incomplete rotator cuff tear or rupture of right shoulder, not specified as traumatic(Discharge Diagnosis) - 11/04/23 Subacromial impingement of right shoulder(Discharge Diagnosis) - 11/04/23 Encounter for other orthopedic aftercare(Final) - Bicipital tendinitis, right shoulder(Final) - Incomplete rotator cuff tear or rupture of right shoulder, not specified as traumatic(Final) - Impingement syndrome of right shoulder(Final) - Discharge Disposition: Home or Self Care Attending Physician: VAIBHAV Anderson Referring Physician: BELEN HU APRN Allergies, Adverse Reactions, Alerts No Known Allergies Assessment and Plan Extracted from: Title:[place] right shoulder POV 1 Author:VAIBHAV Edmond Date:11/04/23 1.??Biceps tendinitis of rig ht shoulder??M75.21 2.??Incomplete rotator cuff tear or rupture of right shoulder, not specified as traumatic??M75.111 3.??Subacromial impingement of right shoulder??M75.41 The patient comes in today status post the aforementioned procedure. ??His sling is fitting well. ??He will continue to wear and do his exercises. ??I will order physical therapy for him. ??I did discuss with him on either backing off of his use of cigarettes or stopping completely. ??He is in understanding and will try.?? Will see him back in 6 weeks. Future Appointments Medications cyclobenzaprine 5 mg oral tablet 20 EA, 0 Refill(s), 0 Refill(s) Start Date: 11/04/23 Status: Ordered Ocrevus 300 mg/10 mL intravenous solution 600 mg =, IV Piggyback, every 6 mo, MS, 0 Refill(s) Start Date: 02/03/22 Status: Ordered omeprazole 20 mg oral delayed release capsule 20 mg = 1 cap, Oral, every night at bedtime Start Date: 08/25/22 Status: Ordered oxyCODONE 5 mg oral tablet 20 EA, 0 Refill(s), 0 Refill(s) Start Date: 11/04/23 Status: Ordered Phenergan 25 mg oral tablet 5 EA, 0 Refill(s), 0 Refill(s) Start Date: 11/04/23 Status: Ordered Problem List Condition Confirmation Course Effective Dates Status H ealth Status Informant Abnormal MRI thoracic spine Confirmed Active Abnormal Brain MRI Confirmed Active H/O Acute myelitis Confirmed Active Biceps tendinitis of right shoulder Confirmed Active Bipolar Confirmed Active Carpal tunnel syndrome of left wrist Confirmed Active Folate deficiency Confirmed Active GERD - Gastro-esophageal reflux disease Confirmed Active H/O: visual disturbance 1 Confirmed Active History of COVID-19 Confirmed Active Human polyomavirus JCV 2 positive Confirmed Active Multiple sclerosis Confirmed Active Incomplete rotator cuff tear or rupture of right shoulder, not specified as traumatic Confirmed Active Optic neuritis Confirmed Active Paroxysmal supraventricular tachycardia 2 Confirmed Active Personality disorder Confirmed Active Subacromial impingement of right shoulder Confirmed Active Vitamin B12 deficiency Confirmed Active Vitamin D deficiency Confirmed Active 1left eye 2wore monitor for a few days no issues since Procedures Procedure Date Related Diagnosis Body Site Status Arthroscopy Shoulder with AD SLAP RCR (Right) 1 10/27/23 Completed Appendectomy Completed Arthroscopy of shoulder C ompleted Colonoscopy Completed 1auto-populated from documented surgical case Vital Signs Most recent to oldest [Reference Range]: 1 Peripheral Pulse Rate [60-100 bpm] 82 bp m (11/04/23 9:38 AM) Blood Pressure [90-140/60-90 mmHg] 132/8 0mmHg (11/04/23 9:38 AM) Mean Arterial Pressure, Cuff [65-140 mmH g] 97 mmHg (11/04/23 9:38 AM) Weight 125 kg (11/04/23 9:38 AM) Weight Measured (lbs) 275.578 lb (11/04/23 9:38 AM) Weight Dosing 125.000 kg (11/04/23 9:38 AM) Height 191 cm (11/04/23 9:38 AM) Height/Length Measured (inches) 75.2 inc h (11/04/23 9:38 AM) BSA Measured 2.58 m2 (11/04/23 9:38 AM) Body Mass Index 34.26 kg/m2 (11/04/23 9:38 AM) Social History Social History Type Response Tobacco Current everyday tob acco user Tobacco Use:. 1 pack a day per day. Total pack years: 365. Sex Male Implantable Device List Procedure Provider Procedure Date Device Type Site Arthroscopy Shoulder with AD SLAP RCR Ivan Pena MD 10/27/23 Unknown Shoulder R Device Identifier Serial Number Lot or Batch Number Manufacturing Date Expiration Date Distinct Identification Code MRI Safety Implantable Status Assigning Authority Unknown Unknown [id number] Unknown 01/22/26 Unknown Unknown Active Unk nown Unknown Unknown [id number] Unknown 05/25/28 Unknown Unknown Active Unknown Physician Outpatient Note * VAIBHAV Anderson: PERFORM Event Display: Office Clinic Note Physician Authored Date: [id number] BAR TORRES :1980 Age:43 years Sex:Male Visit Date:11/04/2023 Primary Care Physician: BELEN HU APRN Chief Complaint 1ST POV RIGHT SHOULDER History of Present Illness The patient comes in today status post surgery on 10/27/2023.?? He??had a right shoulder arthroscopy with RCR, CARLO, extensive debridement, and OBT.?? Overall he is doing well. ??He has been doing his exercises and wearing his sling. ??He has been taking his aspirin. ??He is not in need of any pain medication.?? The patient denies any fevers, chills, chest pain, shortness of breath, numbness or tingling.?? Review of Systems Other than the HPI today is unremarkable Physical Exam Vitals & Measurements HR:??82??(Peripheral)?? BP:??132/80?? SpO2:??95%?? HT:??191??cm?? WT:??125??kg?? BMI:??34.26?? Pain Score:??1?? BSA:??2.58?? General: AAOx3, in no acute distress, appears to be their stated age, is generally fit appearing ?? Right shoulder: Mild effusion, mild edema. Well approximated incisions. No signs of bleeding, discharge or infection. Motor sensory reflex exam distally is intact. Range of motion of the elbow wrist and hand is full. Able do demonstrate exercises appropriately after counseling. Range of motion of the shoulder is passive FE to 90, ER to 30, IR to chest wall.?? Assessment/Plan 1.??Biceps tendinitis of right shoulder??M75.21 2.??Incomplete rotator cuff tear or rupture of right shoulder, not specified as traumatic??M75.111 3.??Subacromial impingement of right shoulder??M75.41 The patient comes in today status post the aforementioned procedure. ??His sling is fitting well. ??He will continue to wear and do his exercises. ??I will order physical therapy for him. ??I did discuss with him on either backing off of his use of cigarettes or stopping completely. ??He is in understanding and will try.?? Will see him back in 6 weeks. Problem List/Past Medical History Ongoing Abnormal Brain MRI Abnormal MRI thoracic spine Biceps tendinitis of right shoulder Bipolar Carpal tunnel syndrome of left wrist Folate deficiency GERD - Gastro-esophageal reflux disease H/O Acute myelitis H/O: visual disturbance History of COVID-19 Human polyomavirus JCV 2 positive Incomplete rotator cuff tear or rupture of right shoulder, not specified as traumatic Multiple sclerosis Optic neuritis Paroxysmal supraventricular tachycardia Personality disorder Subacromial impingement of right shoulder Tobacco user Vitamin B12 deficiency Vitamin D deficiency Historical Alcohol abuse Procedure/Surgical History ???Arthroscopy Shoulder with CARLO SLAP RCR (Right) (10/27/2023)???Appendectomy???Arthroscopy of shoulder???Colonoscopy Medications cyclobenzaprine 5 mg oral tablet Ocrevus 300 mg/10 mL intravenous solution, 600 mg, IV Piggyback, every 6 mo omeprazole 20 mg oral delayed release capsule, 20 mg= 1 cap, Oral, every night at bedtime oxyCODONE 5 mg oral tablet Phenergan 25 mg oral tablet Allergies No Known Allergies Social History Alcohol Current, Twisted Tea, 1-2 times per week Electronic Cigarette/Vaping Electronic Cigarette Use: Never. Substance Use Current, Marijuana, Daily Tobacco Current everyday tobacco user Tobacco Use:. 1 pack a day per day. Total pack years: 365. Family History Family history is negative Electronically Signed on 11/04/2023 11:05 EDT VAIBHAV Anderson Electronically Signed on 11/04/2023 14:25 EDT Ivan Pena MD Patient Care team information Care Team Personnel Name: BELEN HU APRN Position: No Access Member Role: Primary Care Physician Address: Address: [address] [address]- Care Team Related Persons Name: BETSY TORRES Address: Home [address] [place], [place] [id number] [facility] Name: RICCI ROBINS Name: RICCI ROBINS Name: TERRY LARSEN Name: TERRY LARSEN
--- OUTSIDE RECORDS SUMMARY | 2024-01-30 02:03 | XMS_ITS | Continuity of Care Document ---
Author Organization [facility] Address [address] [place] [address] Care Team Providers Care Digital Strategist Senior Manager Name Role Phone Frances Dominguez MD Primary Care Physician Encounter [facility] NBR [id number] Date(s): 02/23/23 - 02/23/23 [facility] [address], [place] [address] Encounter Diagnosis Multiple sclerosis(Discharge Diagnosis) - 02/23/23 H/O Acute myelitis(Discharge Diagnosis) - 02/23/23 Abnormal Brain MRI(Discharge Diagnosis) - 02/23/23 Folate deficiency(Discharge Diagnosis) - 02/23/23 H/O: visual disturbance(Discharge Diagnosis) - 02/23/23 Vitamin B12 deficiency(Discharge Diagnosis) - 02/23/23 Optic neuritis(Discharge Diagnosis) - 02/23/23 Discharge Disposition: Home or Self Care Attending Physician: Jonnie Bello MD Allergies, Adverse Reactions, [...] Range]: 1 Peripheral Pulse Rate [60-100 bpm] 81 bp m (02/23/23 2:32 PM) Blood Pressure [90-140/60-90 mmHg] 131/9 1mmHg (02/23/23 2:32 PM) Mean Arterial Pressure, Cuff [65-140 mmH g] 104 mmHg (02/23/23 2:32 PM) Weight 121.83 kg (02/23/23 2:32 PM) Weight Measured (lbs) 268.589 lb (02/23/23 2:32 PM) Weight Dosing 121.830 kg (02/23/23 2:32 PM) Gray Body Weight Calculated 84.5 kg (02/23/23 2:32 PM) Height 190.50 cm (02/23/23 2:32 PM) Height/Length Measured (inches) 75 inch (02/23/23 2:32 PM) BSA Measured 2.54 m2 (02/23/23 2:32 PM) Body Mass Index 33.57 kg/m2 (02/23/23 2:32 PM) Social History Social History Type Response Tobacco Current everyday tob acco user Tobacco Use:. 1 pack a day per day. Total pack years: 365. Sex Male Physician Outpatient Note * Jonnie Bello MD: MODIFY, PERFORM Event Display: Office Clinic Note Physician Authored Date: [id number] BAR TORRES :1980 Age:42 years Sex:Male Visit Date:02/23/2023 Primary Care Physician: Frances Dominguez MD Chief Complaint Patient presents today with , Kaylene, for a 6 month MS follow up. He reports right shoulder pain for the past few months. He is unsure of why it is hurting, he can't recall any injury or overworking it. History of Present Illness January ?? This very pleasant gentleman comes for follow-up evaluation for his multiple sclerosis with his Kaylene. ?? I had last seen him??in August 2022. ?? He has been getting Ocrevus infusions??since??January 2021. ??It has been now about 2 years. ??His last infusion was in August??2022. ??His next Ocrevus infusion is on??March 23, 2023.?? He has been doing well. ??His disease has been stable. ? About 3 months back he was walking down the stairs and he had a fall.?? The steps were slippery.?? He injured his right shoulder.?? No other relapses. ?? His last MRI scan was in??December 2021. ??It has been more than 1 year since he had his??MRI of the brain cervical spine and thoracic spine. ? PLAN: ?? February 23, 2023 ?? His multiple sclerosis appears stable. ?? We will get his labs today. ?? We will repeat his MRI brain cervical spine and thoracic spine??because the last time it was done was December 2021 which is more than a year back. ?? His next Ocrevus infusion is on??March 23, 2023 ?? Follow-up in 6 months Review of Systems ?? The patient has no additional neurologic, psychiatric, head, ears, eyes, nose, throat, pulmonary, cardiovascular, gastrointestinal, musculoskeletal, skin, endocrine, renal, immunological, allergic, lymphoid, rheumatologic??and hematological symptoms other than those noted above Physical Exam Vitals & Measurements HR:??81??(Peripheral)?? BP:??131/91?? HT:??190.50??cm?? WT:??121.83??kg?? BMI:??33.57?? BSA:??2.54?? He is pleasant awake alert oriented. ??Speech and language are normal. ??Visual murdock are full. ??Eye movements are intact muscle strength is 5/5.?? Deep tendon reflexes knee jerks are 2+. ??Rest are absent.?? Xkfcas-vgic-szqgus testing is normal. Assessment/Plan 1.??Multiple sclerosis??G35 January ?? This very pleasant gentleman comes for follow-up evaluation for his multiple sclerosis with his Kaylene. ?? I had last seen him??in August 2022. ?? He has been getting Ocrevus infusions??since??January 2021. ??It has been now about 2 years. ??His last infusion was in August??2022. ??His next Ocrevus infusion is on??March 23, 2023.?? He has been doing well. ??His disease has been stable. ? About 3 months back he was walking down the stairs and he had a fall.?? The steps were slippery.?? He injured his right shoulder.?? No other relapses. ?? His last MRI scan was in??December 2021. ??It has been more than 1 year since he had his??MRI of the brain cervical spine and thoracic spine. ? PLAN: ?? February 23, 2023 ?? His multiple sclerosis appears stable. ?? We will get his labs today. ?? We will repeat his MRI brain cervical spine and thoracic spine??because the last time it was done was December 2021 which is more than a year back. ?? His next Ocrevus infusion is on??March 23, 2023 ?? Follow-up in 6 months ?? REVIEW OF PRIOR RECORDS 08/25/22 ?Multiple sclerosis??G35 ??August 25, 2022 ?? This gentleman comes for follow-up of his multiple sclerosis. ?? I had last seen him in January 2022..?? He got his last Ocrevus infusion in February 2022. ??His next infusion is scheduled for??September 15, 2022??for his next Ocrevus infusion. ?? He says he is doing well in terms of his optic neuritis and??spinal cord issues. ? MRI brain, cervical spine,??thoracic spine done with and without contrast in December 2021 was stable as compared to the previous??MRIs.?? No flareups. ?? He says he is doing well. ??No??flareups or relapses. ??His vision is okay.?? [facility] ?? He is tolerating the Ocrevus infusions quite well. ?? I want to give him the most aggressive treatment for multiple sclerosis given the fact that he doesnot want his brain his eyes and also the spinal cord.?? He has a T11 lesion which led to numbness in both his legs.?? This happened within a month of getting the Ocrevus infusion??which was his firstinfusion.?? But I think by that time the??Ocrevus had not kicked in. ?. ?? We will continue his Ocrevus infusions. ?? His next infusion is on??September 15, 2022 ?? I would like to get lab work-up. ?? I would also like to check his SHER virus status ?? Follow-up in 6 months ?? 2.??Optic neuritis??H46.9 ?? 3.??Demyelinating disease of the spinal cord??G37.9 ?? January ?Multiple sclerosis??G35 ? January ?This pleasant gentleman comes for follow-up evaluation of his multiple sclerosis.?? His lastinfusion of Ocrevus??was??in??August 2021.?? His next Ocrevus infusion is in February 2022. ?? He says he is doing reasonably well. ?MRI of the brain done January 22, 2022??is unchanged as compared to the previous MRI of the brain??done??June 17, 2021.?? No new lesions or interval lesions or enhancing lesions. ?? MRI of the thoracic spine done on January 22, 2022??the same T2/STIR abnormality??at T8 level.?? There is a smaller lesion at T11.?? These are unchanged from previous MRI of the thoracic spine??December 25, 2020. ?? MRI of the cervical spinous??unremarkable with and without contrast done??January 22, 2022. ? JULY 2021 ?1. Multiple sclerosis - G35 (Primary), On Ocrevus since January 2021; OPTIC NEURITIS IN 2019; ACUTE THORACIC MYELITIS 11/2020- ;enhancing lesions in T7- 8,T11; also enhancing lesions in brain- adjacent to right lateral ventricle anterior horn and posterior horn, MRI brain 01/24/20 [facility] with gado - NO change as compared to september 2019; On on Copaxone 08/2020; MRI thoracic spine with and w/o Gd+ 12/25/20 shows a prominent enhancing lesion at T7-8 and a smaller enhancing lesion at T11. These are new compared with normal MRI Thoracic spine in November 2019. Both these lesions are on the DORSAL ASPECT ofthe spinal cord and hence explain his symptoms of numbness in his feet. MRI brain with and w/o Gd+ 12/25/20 shows a well defined large enhancing lesion adjacent to right anterior horn of right lateral ventricle. There is also a smaller tiny enhancing lesion adjacent to posterior horn of right lateralventricle. These lesions are new as compared to previous MRI brain December 2019. MRI cervical spine with and w/o Gd+ 12/25/20 shows no lesions. OCREVUS - STARTED January MRI brain done March 2021 shows 3 enhancing lesions-- A nodular lesion right posterior frontal around the edge of the ventricle; another enhancing lesion adjacent to the posterior horn of the right lateral ventricle; and another enhancing area in the left posterior occipital area. These enhancing lesions are new as compared to the prior MRI in December 2020 MRI of the orbits is unremarkable ?2. Acute myelitis - G04.91, presenting as bilateral heel numbness starting 12/08/20;MRI thoracicspine with and w/o Gd+ 12/25/20 shows a prominent enhancing lesion at T7-8 and a smaller enhancing lesion at T11. These are new compared with normal MRI Thoracic spine in November 2019. Both these lesions are on the DORSAL ASPECT of the spinal cord and hence explain his symptoms of numbness in his feet., MRI thoracic spine with and w/o Gd+ 12/25/20 shows a prominent enhancing lesion at T7-8 and a smaller enhancing lesion at T11. These are new compared with normal MRI Thoracic spine in November 2019. Both these lesions are on the DORSAL ASPECT of the spinal cord and hence explain his symptoms of numbne ss in his feet. ?3. Optic neuritis - H46.9, left eye august 2019; admitted to [facility] 10/26/19 iv [place]UM[place] ?4. Abnormal MRI, thoracic spine - R93.7, 12/25/20-MRI thoracic spine with and w/o Gd+ 12/25/20 shows a prominent enhancing lesion at T7-8 and a smaller enhancing lesion at T11. These are new comparedwith normal MRI Thoracic spine in November 2019. Both these lesions are on the DORSAL ASPECT of the spinal cord and hence explain his symptoms of numbness in his feet., MRI thoracic spine with and w/o Gd+ 12/25/20 shows a prominent enhancing lesion at T7-8 and a smaller enhancing lesion at T11. These are new compared with normal MRI Thoracic spine in November 2019. Both these lesions are on the DORSAL ASPECT of the spinal cord and hence explain his symptoms of numbness in his feet. ?5. Abnormal brain MRI - R90.89, 12/25/20MRI brain with and w/o Gd+ 12/25/20 shows a well defined large enhancing lesion adjacent to right anterior horn of right lateral ventricle. There is also a smaller tiny enhancing lesion adjacent to posterior horn of right lateral ventricle. These lesions are new as compared to previous MRI brain December 2019., MRI brain with and w/o Gd+ 12/25/20 shows a well defined large enhancing lesion adjacent to right anterior horn of right lateral ventricle. There is also a smaller tiny enhancing lesion adjacent to posterior horn of right lateral ventricle. These lesions are new as compared to previous MRI brain December 2019. ?6. B12 deficiency - E53.8, 135 october 2019 ?7. Folate deficiency - E53.8 ?8. Vitamin D deficiency - E55.9 ?9. ETOH abuse - F10.10 ?10. SHER virus antibody positive - R76.8 ?11. PSVT (paroxysmal supraventricular tachycardia) - I47.1 ?12. Carpal tunnel syndrome of left wrist - G56.02, since July 2020 ?? July MRI brain done June 17, 2021 reviewed with the patient and his . There are no new or interval lesions or inflammation as compared to the previous MRI brain of 03/19/2021. There is no enhancement or enhancing lesions indicating that there are no active lesions. This means that the patient's multiple sclerosis is stable and is responding to the Ocrevus infusion. Ocrevus sometimes takes 3 to 6 months to kick in and that may be the reason that he had some new inflammatory activity on the MRI in February 2021 within 3 weeks after getting the Ocrevus infusion.It is because the Ocrevus may not have kicked in by that time. Kaylene pt 's called me on my cell phone April.. He was having HEWITT and hip pain. asked him to come to ED. Spoke with Dr. Gomez. COVID +; Dr. Gomez gave him antibodyinfsion for covivd. he was UNvaccinated. We had checked his CD19/CD20 count in April 28, 2021 and it was 0. This is expected because Ocrevus causes complete lysis of the CD19 CD20 cells leading to 0 counts for about 4 months after the Ocrevus infusion. I discussed with this gentleman and his Kaylene that if he wants to get the Covid vaccine this may be the right time to get it. He is scheduled for the next Ocrevus infusion in August 2021. I explained to them that Ocrevus is a monoclonal antibody that causes lysis of B cells which produces antibodies and hands he may not have a good response if he gets a Covid vaccine after the i Ocrevus nfusion. At this point in time they do not want to proceed with the vaccine. We will get labs today-CBC, metabolic panel B12 level serum protein electrophoresis and immunofixation. April I had last seen the patient on February 20, 2021 after he had his first infusion of Ocrevus and had headache. Patient's heard call me around end of wanting to reevaluate his vision. I had made a referral to Dr. Wu. He was seen by Libra Anderson, NURA, at [facility] on April 15, 2021. They did OCT testing and found that there was retinal thinning left eye greater than right eye. I also ordered MRI of the brain and MRI of the orbit MRI brain done March 2021 shows 3 enhancing lesions-- A nodular lesion right posterior frontal around the edge of the ventricle; another enhancing lesionadjacent to the posterior horn of the right lateral ventricle; and another enhancing area in the left posterior occipital area. These enhancing lesions are new as compared to the prior MRI in December 2020 MRI of the orbits is unremarkable REVIEW OF PRIOR RECORDS The patient's called me on January 01, 2021 very early in the morning saying that the patientwas not able to put weight on the right leg. I asked him to come to the emergency department and he was subsequently admitted. MRI of the lumbarspine showed a disc bulge impinging on his right L5 nerve root. He got better by next day and we put him on some physical therapy he is back to normal now. We spent a lot of time discussing the treatment options for his multiple sclerosis. I had a long discussion with the patient and the his . I discussed the MRI findings showing active lesions in the brain and in the thoracic spinal cord. Patient says he still has numbness in his feet but is able to walk on his muscle strength and everything is good. I reviewed the MRI brain, c spine and t spine done with Gd+ on 12/25/20 with the patient and his . MRI thoracic spine with and w/o Gd+ 12/25/20 shows a prominent enhancing lesion at T7-8 and a smallerenhancing lesion at T11. These are new compared with normal MRI Thoracic spine in November 2019. Boththese lesions are on the DORSAL ASPECT of the spinal cord and hence explain his symptoms of numbness in his feet. MRI brain with and w/o Gd+ 12/25/20 shows a well defined large enhancing lesion adjacent to right anterior horn of right lateral ventricle. There is also a smaller tiny enhancing lesion adjacent to posterior horn of right lateral ventricle. These lesions are new as compared to previous MRI brain December 2019. MRI cervical spine with and w/o Gd+ 12/25/20 shows no lesions. Given the acute relapse and active lesions in the brain and in the thoracic spinal cord he needs treatment for acute relapse with IV Solu-Medrol 1 g IV infusion daily for 5 days.. The patient is comfortable with getting the infusions.. Given the urgency of the matter have asked the patient to come to the emergency department. I spoke with Dr. Baum who was very gracious to accept the patient and give a dose of IV Solu-Medrol. I do not believe his neurological deficits are bad enough to need inpatient admission. We will try to schedule the rest for IV Solu-Medrol infusions as an outpatient. I explained to them that the l the Glatiamer injections not working. He has had a considerably significant relapse based on the MRI scans of the brain and thoracic spinal cord though clinically he looks okay. I will discuss various options next week on gkuq-ic-bycq visit. I am leaning towards either fingolimod or ocrelizumab. We must remember that he is SHER virus ANTIBODY POSITIVE WITH A HIGH TITER OF 2.67 IN OCTOBER 2019. We need to be careful based on any disease modifying therapy we choose. The current rate of PML is approximately 1 per 12,000 patients being treated with Gilenya and it increases to 1 in 5000 for the dose treated longer than 2 years based on updates until July 2018. No cases of PML have been reported with Ocrevus unless the patient has been treated in the past with either fingolimod or Tysabri. 9 cases have been reported in patients receiving Ocrevus were previously treated with fingolimod or Tysabri.--This is based on Journal of neurology, neuro immunology and neuro information from April 2020. Based on the above data it may be safer to start the patient on ocrelizumab. But I will discuss this next week on the tvoz-sv-[id number] visit with the patient and his . They expressed understanding 12/10/20 Patient says that he had acute onset numbness of both heels over the last about 2 to 3 days. He denies any ascending numbness or sensory level in the abdomen or torso. He denies any bandlike sensation in the abdomen. He denies any difficulty with walking. He denies any optic neuritis or numbness in his hands. He has been on Copaxone injections since August 2020 and is complaining of local injection site reactions. He had come to the emergency department with pain in his abdomen and was found to have acute appendicitis on CT of the abdomen. He had appendectomy about [address] Redmond. 07/30/2020 He is complaining of numbness in his left hand while sleeping into the left arm left index finger middle finger and it has been going on for about a week. Wakes him up from sleep. It comes on with driving. He is right-handed.? left carpal tunnel syndrome Unfortunately the insurance company denied Glatiamer - generic-Glatopa. But subsequently we found that the approved the brand-name Copaxone. A prescription was sent and it is unclear why it was not sent to the patient. Rene made some phone calls and found that they wanted it written as brand-name only and I sent a new prescription just now and hopefully the patient should be able to get it within the next week or 10 days. 03/2020 MRI brain with gado 01/24/20---LESIONS seen in RIGHT INFERIOR ARCELIA, RIGHT CORPUS CALLOSUM, PERIVENTRICULAR - PERPENDICULAR TO VENTRICLES. No enhancement. MRIbrain with gado 12/2019 shows the same lesions of MS as seen on prior MRI brain in september 2019 at [facility]. He had an episode of blurred vision in right eye 02/2020 but went away. He did not call us. Emphasized that anytime this happens , he should immediately call us. Vision is good in left eye ---- VEP results ( November 2019) VA: OS 20/30-- P100 latency: 141.9ms VA: OD 20/25-- P100 LATENCY: 99 MS vep consistent with OPTIC NEURITIS left eye MRI of the cervical spine with gadolinium October 2019was unremarkable and did not show any lesions. MRI of the thoracic spine with gadolinium October 2019 did not show any lesions. Holter monitoring for [address] Jason Alba was normal. Appreciate Dr. Mague Wu's kind referral. He was admitted to [facility] hospital admission on 10/26/19 for LEFT EYE OPTIC NEURITIS that developed end of August 2019.?? Around mid to Late August 2019, he started having cough, left sided neck pain and left sided HEWITT. Then his vision on left eye became foggy. His eyes would hurt if he moved it to left or right. He saw Dr.Karena Wu around mid September 2019. Dr. Wu dx him with optic neuritis and got an urgent MRI at [facility] ON OCTOBER 11, which should multiple lesions in brain consistent with MS. MRI BRAIN WITH GADO ( 10/12/19), [facility]: multiple non- enhancing lesions--- Right LOWER ARCELIA, Right TEMPORAL, Right OCCIPITAL, posterior Corpus Callosum , rostral and dorsal Mid Brain, , left OCCIPITAL He has B12 deficiency of 135 on 10/26/19. His folate is low a t4.2 ( normal > 6). His vitamin D islow at 28.8 on 10/26/19. CSF : Normal glucose, protein, cell count. NO oligoclonal bands. Normal IgG SYNTHESIS REATE. ELEVATED Myelin basic protein. CSF NEGATIVE for VDRL, SHAHANA,lyme index, .?? SPEP NORMAL DEDE, serum SHAHANA, SERUM LYME, : NORMAL NMO antibody negative . JCV antibody positive at 2.67. Long discussion. ? OCREVUS STARTED January MRI brain done June 17, 2021 reviewed with the patient and his . There are no new or interval lesions or inflammation as compared to the previous MRI brain of 03/19/2021. There is no enhancement or enhancing lesions indicating that there are no active lesions. This means that the patient's multiple sclerosis is stable and is responding to the Ocrevus infusion. Ocrevus sometimes takes 3 to 6 months to kick in and that may be the reason that he had some new inflammatory activity on the MRI in February 2021 within 3 weeks after getting the Ocrevus infusion.It is because the Ocrevus may not have kicked in by that time. rosemarie Maurice 's called me on my cell phone April.. He was having HEWITT and hip pain. asked him to come to ED. Spoke with Dr. Gomez. COVID +; Dr. Gomez gave him antibodyinfsion for covivd. he was UNvaccinated. We had checked his CD19/CD20 count in April 28, 2021 and it was 0. This is expected because Ocrevus causes complete lysis of the CD19 CD20 cells leading to 0 counts for about 4 months after the Ocrevus infusion. I discussed with this gentleman and his Kaylene that if he wants to get the Covid vaccine this may be the right time to get it. He is scheduled for the next Ocrevus infusion in August 2021. I explained to them that Ocrevus is a monoclonal antibody that causes lysis of B cells which produces antibodies and hands he may not have a good response if he gets a Covid vaccine after the i Ocrevus nfusion. At this point in time they do not want to proceed with the vaccine. CBC,??metabolic panel was unremarkable vitamin B12 is 183??in??July 2021.?? This is being??supplemented MRI brain done March 2021 shows 3 enhancing lesions-- A nodular lesion right posterior frontal around the edge of the ventricle; another enhancing lesionadjacent to the posterior horn of the right lateral ventricle; and another enhancing area in the left posterior occipital area. These enhancing lesions are new as compared to the prior MRI in December 2020 MRI of the orbits is unremarkable He gOT first dose of Ocrevus infusion on February 19, 2021 he got the second dose of Ocrevus infusion on March 05, 2021. In spite of the Ocrevus infusion he still having active lesions in the brain Given the fact that he is having enhancing lesions in the brain on the MRI of March 2021, it indicates that he is having active multiple sclerosis. He got 3 days of solumedra.. There are no new or interval lesions or inflammation as compared to the previous MRI brain of 03/19/2021. There is no enhancement or enhancing lesions indicating that there are no active lesions. This means that the patient's multiple sclerosis is stable and is responding to the Ocrevus infusion. Ocrevus sometimes takes 3 to 6 months to kick in and that may be the reason that he had some new inflammatory activity on the MRI in February 2021 within 3 weeks after getting the Ocrevus infusion.It is because the Ocrevus may not have kicked in by that time. ?MRI of the brain done January 22, 2022??is unchanged as compared to the previous MRI of the brain??done??June 17, 2021.?? No new lesions or interval lesions or enhancing lesions. ?? MRI of the thoracic spine done on January 22, 2022??the same T2/STIR abnormality??at T8 level.?? There is a smaller lesion at T11.?? These are unchanged from previous MRI of the thoracic spine??December 25, 2020. ?? MRI of the cervical spinous??unremarkable with and without contrast done??January 22, 2022. ? 3. B12 and folate deficiency: supplementation. 4. Vitamin D deficiency: supplementation 5. JCV positive at 2.67-- need to be careful when choosing DMT's 6. ETOH abuse: strongly urged to quit 7. SMOKING; strongly urged to quit; asked to discuss with PCP regarding cessatin programs for both smoking and etoh 8.PSVT: Holter monitoring is normal 9. His left hand numbness could be due to carpal tunnel syndrome he could benefit from wearing wrist brace otherwise we could do an EMG ? PLAN: ?? February 23, 2023 ?? His multiple sclerosis appears stable. ?? We will get his labs today. ?? We will repeat his MRI brain cervical spine and thoracic spine??because the last time it was done was December 2021 which is more than a year back. ?? His next Ocrevus infusion is on??March 23, 2023 ?? Follow-up in 6 months 2.??H/O Acute myelitis??G04.91 3.??Abnormal Brain MRI??R93.89 4.??Folate deficiency??E53.8,??Vitamin B12 deficiency??E53.8 5.??H/O: visual disturbance??Z86.69 7.??Optic neuritis??H46.9 Problem List/Past Medical History Ongoing Abnormal Brain MRI Abnormal MRI thoracic spine Alcohol abuse Bipolar Carpal tunnel syndrome of left wrist Folate deficiency H/O Acute myelitis H/O: visual disturbance History of COVID-19 Human polyomavirus JCV 2 positive Multiple sclerosis Optic neuritis Paroxysmal supraventricular tachycardia Personality disorder Vitamin B12 deficiency Vitamin D deficiency Historical No qualifying data Medications Ocrevus 300 mg/10 mL intravenous solution omeprazole 20 mg oral delayed release capsule, 20 mg= 1 cap, Oral, every night at bedtime Allergies No Known Allergies Social History Alcohol Current, Twisted Tea, 1-2 times per week Electronic Cigarette/Vaping Electronic Cigarette Use: Never. Tobacco Current everyday tobacco user Tobacco Use:. 1 pack a day per day. Total pack years: 365. Family History Family history is negative Attending Attestation ?? Risks, Benefits , alternatives and complications discussed with the patient.Total??time spent on the day of the visit ( both previsit, during and post visit) was 71 minutes spent discussing diagnosis, prognosis, work- up and management. Time was also spent in reviewing medical records, personally re viewing images and interpreting it, personally reviewing and interpreting electrodiagnostic studies, labs and discussing with other providers. ?? Thank you very much for allowing us to participate in the care of your patient. Please do not hesitate to call if you have any questions or comments. ?? This document was prepared using eSight voice recognition software.Please excuse any errors.?? Electronically Signed on 02/23/23 03:17 PM Jonnie Bello MD Patient Care team information Care Team Personnel Name: Frances Dominguez MD Position: No Access Member Role: Primary Care Physician Address: Address: [address] [place] [phone] [place] Care Team Related Persons Name: BETSY TORRES Address: Home [address] [place], [place] [id number] [facility]
--- OUTSIDE RECORDS SUMMARY | 2024-01-30 02:03 | XMS_ITS | Continuity of Care Document ---
Author Organization [facility] Address [address] [place] [phone] Care Team Providers Care Drafter Castings Name Role Phone BELEN HU APRN Primary Care Physician Encounter [facility] NBR [id number] Date(s): 10/27/23 - 10/27/[address] [address]- Encounter Diagnosis Biceps tendinitis of right shoulder(Discharge Diagnosis) - 10/21/23 Incomplete rotator cuff tear or rupture of right shoulder, not specified as traumatic(Discharge Diagnosis) - 10/21/23 Subacromial impingement of right shoulder(Discharge Diagnosis) - 10/21/23 Discharge Disposition: Home or Self Care Attending Physician: Ivan Pena MD Admitting Physician: Ivan Pena MD Referring Physician: Ivan Pena MD Allergies, Adverse Reactions, Alerts No Known Allergies Assessment and Plan Future Appointments Functional Status 10/27/23 Living Environment Home Environment No qualifying data available Patient's Responsibilities Rehab Persona l ADL Prior ADL Status Independent Prior Mobility Status Independent Prior Instrumental ADL Level Independent Prior Cognitive-Communication Skills Ind ependent 10/27/23 Anti-Embolism Device Activity: Applied Anti-Embolism Site Condition: No complic ations 10/27/23 Antiembolism Device Graduated compressio n stockings, knee high, bilateral, Intermittent pneumatic compression devices, knee high, bilat Medications Ocrevus 300 mg/10 mL intravenous solution 600 [...] Most recent to oldest [Reference Range]: 1 2 3 Temperature Temporal Artery [36-38 Deg C] 36.2 Deg C (10/27/23 1:45 PM) 36.3 Deg C (10/27/23 1:19 PM) 36.6 Deg C (10/27/23 8:35 AM) Temperature Temporal Artery (DegF) [97.3-100 Deg F] 97.16 Deg F *LOW* (10/27/23 1:45 PM) 97.34 Deg F (10/27/23 1:19 PM) Peripheral Pulse Rate [60-100 bpm] 71 bpm (10/27/23 2:45 PM) 65 bpm (10/27/23 2:30 PM) 62 bpm (10/27/23 2:15 PM) Heart Rate Monitored [60-100 bpm] 66 bpm (10/27/23 2:30 PM) 63 bpm (10/27/23 2:15 PM) 75 bpm (10/27/23 2:00 PM) Respiratory Rate [12-24 br/min] 14 br/min (10/27/23 2:45 PM) 14 br/min (10/27/23 2:30 PM) 14 br/min (10/27/23 2:15 PM) Blood Pressure [90-140/60-90 mmHg] 144/97mmHg *HI* (10/27/23 2:45 PM) 145/89mmHg *HI* (10/27/23 2:30 PM) 143/94mmHg *HI* (10/27/23 2:15 PM) Mean Arterial Pressure, Cuff [65-140 mmHg] 113 mmHg (10/27/23 2:45 PM) 108 mmHg (10/27/23 2:30 PM) 110 mmHg (10/27/23 2:15 PM) Mean Arterial Pressure Cuff 111 mmHg (10/27/23 2:45 PM) 107 mmHg (10/27/23 2:30 PM) 109 mmHg (10/27/23 2:15 PM) Weight 125 kg (10/20/23 12:50 PM) Weight Dosing 125.000 kg (10/20/23 12:50 PM) Height 191 cm (10/20/23 12:50 PM) Social History Social History Type Response [...] Safety Implantable Status Assigning Authority Unknown Unknown [id number] Unknown 01/22/26 Unknown Unknown Active Unk nown Unknown Unknown [id number] Unknown 05/25/28 Unknown Unknown Active Unknown Procedure note * Harriet Land GRAIN FARMWORKER: PERFORM Event Display: Procedure Note Authored Date: [id number] 10/27/2023 11:42:35 Surgical Procedure: Right Shoulder Arthroscopy, subacromial decompression, rotator cuff repair, open bicep tenodesis Indication:??Surgeon requested for post-op pain management Place of service:??SDS TIME OUT: 1041 Block type:Supraclavicular Side:Right Patient position:??Semi-flowlers Pre-medication:[id number] Level of sedation:Awake Monitors: Pulse oximetery, EKG, BP Oxygen:Othernone Prep done using chloroprep, sterile drapes and sterile gloves. Skin localization with lidocaine 1%. Injection made keeping needle tip and spread of anesthetic in ultrasound view using??22g 50mm??needle.??Negative aspiration before each injection of 5ml. Local anesthetic:Ropivicaine0.5% 30ml Adjuncts:[id number] Event Name Event Result Date/Time Temperature Temporal Artery 36.6 Deg C 10/27/23 08:35:00 Respiratory Rate 16 br/min 10/27/23 08:35:00 Systolic Blood Pressure 137 mmHg 10/27/23 08:35:00 Diastolic Blood Pressure 103 mmHg High 10/27/23 08:35:00 Electronically Signed on 10/27/2023 11:45 EDT Harriet Land CRNA Patient Care team information Care Team Personnel Name: BELEN HU APRN Position: No Access Member Role: Primary Care Physician Address: Address: [address] [address]- Care Team Related Persons Name: BETSY TORRES Address: Home [address] [place], [place] [id number] [facility] Name: RICCI ROBINS Name: RICCI ROBINS Name: TERRY LARSEN Name: TERRY LARSEN
--- OUTSIDE RECORDS SUMMARY | 2024-01-30 02:03 | XMS_ITS | Continuity of Care Document ---
Author Organization [facility] Address [address] [place] [address] Care Team Providers Care Implementation Coordinator Name Role Phone BELEN HU APRN Primary Care Physician Encounter [facility] NBR [id number] Date(s): 12/16/23 - 12/16/[address] [address]- Encounter Diagnosis Subacromial impingement of right shoulder(Discharge Diagnosis) - 12/16/23 Biceps tendinitis of right shoulder(Discharge Diagnosis) - 12/16/23 Incomplete rotator cuff tear or rupture of right shoulder, not specified as traumatic(Discharge Diagnosis) - 12/16/23 Discharge Disposition: Home or Self Care Attending Physician: Jessy Pate PA-C Referring Physician: BELEN HU APRN Allergies, Adverse Reactions, Alerts No Known Allergies Assessment and Plan Future Appointments Medications cyclobenzaprine 5 mg oral [...] Pulse Rate [60-100 bpm] 81 bp m (12/16/23 9:38 AM) Blood Pressure [90-140/60-90 mmHg] 128/7 2mmHg (12/16/23 9:38 AM) Mean Arterial Pressure, Cuff [65-140 mmH g] 91 mmHg (12/16/23 9:38 AM) Weight 124.74 kg (12/16/23 9:38 AM) Weight Measured (lbs) 275.004 lb (12/16/23 9:38 AM) Weight Dosing 124.740 kg (12/16/23 9:38 AM) Height 190.50 cm (12/16/23 9:38 AM) Height/Length Measured (inches) 75 inch (12/16/23 9:38 AM) BSA Measured 2.57 m2 (12/16/23 9:38 AM) Body Mass Index 34.37 kg/m2 (8/22/24 9:38 AM) Social History Social History Type Response Tobacco Current everyday tob acco user Tobacco Use:. 1 pack a day per day. Total pack years: 365. Sex Male Sex Representation Male (finding) Implantable Device List Procedure Provider Procedure Date Device Type Site Arthroscopy Shoulder with AD SLAP RCR Ivan Pena MD 10/27/23 Unknown Shoulder R Device Identifier Serial Number Lot or Batch Number Manufacturing Date Expiration Date Distinct Identification Code MRI Safety Implantable Status Assigning Authority Unknown Unknown [id number] Unknown 01/22/26 Unknown Unknown Active Unk nown Unknown Unknown [id number] Unknown 05/25/28 Unknown Unknown Active Unknown Patient Care team information Care Team Personnel Name: BELEN HU APRN Position: No Access Member Role: Primary Care Physician Address: [facility] - [address] Care Team Related Persons Name: BETSY TORRES Name: RICCI ROBINS Name: RICCI ROBINS Name: TERRY LARSEN Name: TERRY LARSEN Insurance Providers Guarantor name: BAR TORRES Health Plan Information #: 1 Payer: [place] Member Number: [id number] Policy Number: NA Health Plan Information #: 2 Payer: [place] Member Number: [id number] Policy Number: [place] Health Plan Information #: 3 Payer: [place] Member Number: [id number] Policy Number: NA
--- OUTSIDE RECORDS SUMMARY | 2024-01-30 02:03 | XMS_ITS | Continuity of Care Document ---
Author Organization [facility] Ambulatory Clinics Address [address] [place] [address] Care Team Providers Care Elastic Cutter Name Role Phone Ike Herrera Primary Care Physician [phone] Encounter [facility] NBR [id number] Date(s): 02/03/22 - 02/03/22 [facility] [address] [place], [place] [address] Encounter Diagnosis Multiple sclerosis(Discharge Diagnosis) - 02/03/22 Discharge Disposition: Home or Self Care Attending Physician: Jonnie Bello MD Referring Physician: Ike Herrera Allergies, Adverse Reactions, Alerts No Known Allergies Assessment and Plan Future Appointments Functional Status 02/03/22 Other exposure to Infectious Disease Non e Medications Ocrevus 300 mg/10 mL intravenous solution 0 Refill(s) Start Date: 02/03/22 Status: Ordered Vital Signs Most recent to oldest [Reference Range]: 1 Peripheral Pulse Rate [60-100 bpm] 74 bp m (02/03/22 9:42 AM) Blood Pressure [90-140/60-90 mmHg] 133/9 1mmHg (02/03/22 9:42 AM) Weight 123.38 kg (02/03/22 9:42 AM) Weight Measured (lbs) 272.006 lb (02/03/22 9:42 AM) [place] Body Weight Calculated 84.5 kg (02/03/22 9:42 AM) Height 190.50 cm (02/03/22 9:42 AM) Height/Length Measured (inches) 75 inch (02/03/22 9:42 AM) BSA Measured 2.56 m2 (02/03/22 9:42 AM) Body Mass Index 34 kg/m2 (02/03/22 9:42 AM) Social History Social History Type Response Tobacco Current everyday tob acco user Tobacco Use:. 1 pack a day per day. Total pack years: 365. Sex Male Patient Care team information Personnel Name: Ike Herrera Address: Address: [address] [place] [address]
--- OUTSIDE RECORDS SUMMARY | 2024-01-30 02:03 | XMS_ITS | Continuity of Care Document ---
Author Organization [facility] Address [address] [place] [phone] Care Team Providers Care Hydropulper Operator Name Role Phone Frances Dominguez MD Primary Care Physician [phone] Encounter [facility] NBR [id number] Date(s): 09/15/22 - 09/15/[address] [address] Encounter Diagnosis Multiple sclerosis(Final) - Discharge Disposition: Home or Self Care [...] JCV(TM) Ab w/Index LC 08/25/22 Functional Status 09/15/22 Family Member Travel History No recent t ravel Recent Travel History No recent travel Other exposure to Infectious Disease Non e Medications Ocrevus 300 mg/10 mL intravenous solution 0 Refill(s) Start Date: 02/03/22 Status: Ordered omeprazole 20 mg oral delayed release capsule 20 mg = 1 cap, Oral, every night at bedtime Start Date: 08/25/22 Status: Ordered Vital Signs Most recent to oldest [Reference Range]: 1 Temperature Temporal Artery [36-38 Deg C ] 36.6 Deg C (09/15/22 8:51 AM) Peripheral Pulse Rate [60-100 bpm] 83 bp m (09/15/22 8:51 AM) Blood Pressure [90-140/60-90 mmHg] 141/9 5mmHg *HI* (09/15/22 8:51 AM) Social History Social History Type Response Tobacco Current everyday tob acco user Tobacco Use:. 1 pack a day per day. Total pack years: 365. Sex Male Patient Care team information Care Team Personnel Name: Frances Dominguez MD Position: Physician Member Role: Primary Care Physician Address: Address: [address] [place] [phone] [place] Care Team Related Persons Name: BETSY TORRES Address: [address] [phone] [facility]
--- OUTSIDE RECORDS SUMMARY | 2024-01-30 02:03 | XMS_ITS | Continuity of Care Document ---
Author Organization [facility] Ambulatory Clinics Address [address] [place] [address] Care Team Providers Care Group Burner Machine Name Role Phone Frances Dominguez MD Primary Care Physician Encounter [facility] NBR [id number] Date(s): 08/25/22 - 08/25/22 [facility] Ambulatory Clinics [address] [place], [place] [address] Encounter Diagnosis Multiple sclerosis(Discharge Diagnosis) - 08/25/22 Optic neuritis(Discharge Diagnosis) - 08/25/22 Demyelinating disease of the spinal cord(Discharge Diagnosis) - 08/25/22 Discharge Disposition: Home or Self Care Attending Physician: Jonnie Bello MD Referring Physician: Jonnie Bello MD Allergies, Adverse Reactions, Alerts No Known Allergies Assessment and Plan Future Appointments Future Scheduled Tests Laboratory* CBC w/ Diff 08/25/22 * Comprehensive Metabolic Panel 08/25/22 * Protein Elec + Interp, Serum LC 08/25/22 * Stratify JCV(TM) Ab w/Index LC 08/25/22 Functional Status 08/25/22 Other exposure to Infectious Disease Non e Medications Ocrevus 300 mg/10 mL intravenous solution 0 Refill(s) Start Date: 02/03/22 Status: Ordered omeprazole 20 mg oral delayed release capsule 20 mg = 1 cap, Oral, every night at bedtime Start Date: 08/25/22 Status: Ordered Vital Signs Most recent to oldest [Reference Range]: 1 Peripheral Pulse Rate [60-100 bpm] 77 bp m (08/25/22 12:15 PM) Blood Pressure [90-140/60-90 mmHg] 142/1 00mmHg *HI* (08/25/22 12:15 PM) Weight 122.83 kg (08/25/22 12:15 PM) Weight Measured (lbs) 270.793 lb (08/25/22 12:15 PM) [place] Body Weight Calculated 84.5 kg (08/25/22 12:15 PM) Height 190.5 cm (08/25/22 12:15 PM) Height/Length Measured (inches) 75 inch (08/25/22 12:15 PM) BSA Measured 2.55 m2 (08/25/22 12:15 PM) Body Mass Index 33.85 kg/m2 (08/25/22 12:15 PM) Social History Social History Type Response Tobacco Current everyday tob acco user Tobacco Use:. 1 pack a day per day. Total pack years: 365. Sex Male Physician Outpatient Note * Jonnie Bello MD: PERFORM, MODIFY, MODIFY, MODIFY, MODIFY, MODIFY, MODIFY Event Display: Office Clinic Note Physician Authored Date: [id number] BAR TORRES :1980 Age:42 years Sex:Male Visit Date:08/25/2022 Primary Care Physician: Frances Dominguez MD Chief Complaint Patient presents today with , Kaylene, for a 6 month MS follow up. He reports no concerns, no complaints. History of Present Illness August 25, 2022 ?? This gentleman comes for [...] vision is okay.?? He saw the eye doctorabout a month back. ?? He is tolerating [...] that time the??Ocrevus had not kicked in. ? PLAN: ?? August 25, 2022. ?? We will continue his Ocrevus infusions. ?? His next infusion is on??September 15, 2022 ?? I would like to get lab work-up. ?? I would also like to check his SHER virus status ?? Follow-up in 6 months Review of Systems ?? The patient has no additional neurologic, psychiatric, head, ears, eyes, nose, throat, pulmonary, cardiovascular, gastrointestinal, musculoskeletal, skin, endocrine, renal, immunological, allergic, lymphoid, rheumatologic??and hematological symptoms other than those noted above Physical Exam Vitals & Measurements HR:??77??(Peripheral)?? BP:??142/100?? HT:??190.5??cm?? WT:??122.83??kg?? BMI:??33.85?? BSA:??2.55?? He is pleasant awake alert oriented. ??Speech and language are normal. ??Visual murdock are full. ??Eye movements are intact.?? Gait evaluation is unremarkable. ??Muscle strength is 5/5.?? Deep tendonreflexes are absent in upper limbs. ??Right knee jerk is trace left knee jerk is 3+??left ankle jerk is 2+ right ankle jerk is 1+??[id number]-knkt-rwadsk testing is normal Assessment/Plan 1.??Multiple sclerosis??G35 August 25, 2022 ?? This gentleman comes for [...] vision is okay.?? He saw the eye doctorabout a month back. ?? He is tolerating [...] that time the??Ocrevus had not kicked in. ? PLAN: ?? August 25, 2022. ?? We will continue his Ocrevus infusions. ?? His next infusion is on??September 15, 2022 ?? I would like to get lab work-up. ?? I would also like to check his SHER virus status ?? 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 Multiple sclerosis??G35 ? January ?This pleasant gentleman comes for follow-up evaluation of his multiple sclerosis.?? His last infusion of Ocrevus??was??in??August 2021.?? His next Ocrevus infusion [...] with and without contrast done??January 22, 2022. ?? REVIEW OF PRIOR RECORDS JULY 2021 ?1. Multiple sclerosis - G35 (Primary), On Ocrevus since January 2021; OPTIC NEURITIS IN 2019; ACUTE THORACIC MYELITIS 11/2020- ;enhancing lesions in T7- 8,T11; also enhancing lesions in brain- adjacent to right lateral ventricle anterior horn and posterior horn, MRI brain 01/24/20 [facility] with gado - NOchange as compared to september 2019; On on [...] previous MRI brain December 2019. MRI cervical spinewith and w/o Gd+ 12/25/20 shows no lesions. OCREVUS - STARTED January MRI brain done March2021 shows 3 enhancing lesions-- A nodular lesion right posterior frontal around the edge of the ventricle; another enhancing lesion adjacent to the posterior horn of the right lateral ventricle; andanother enhancing area in the left posterior occipital area. These enhancing lesions are new as compared to the prior MRI in December 2020 MRI of the orbits is unremarkable ?2. Acute myelitis - G04.91, presenting as bilateral heel numbness starting 12/08/20;MRI thoracic spine with and w/o Gd+ 12/25/20 shows a prominent enhancing lesion at T7-8 and a smaller enhancing lesion at T11. These are new compared with normal MRI Thoracic spine in November 2019. Both these lesions are on the DORSAL ASPECT of the spinal cord and hence explain his symptoms of numbness in his feet.,MRI thoracic spine with and w/o Gd+ 12/25/20 shows a prominent enhancing lesion at T7-8 and a smallerenhancing lesion at T11. These are new compared with normal MRI Thoracic spine in November 2019. Boththese lesions are on the DORSAL ASPECT of the spinal cord and hence explain his symptoms of numbness in his feet. ?3. Optic neuritis - H46.9, left eye august 2019; admitted to [facility] 10/26/19 iv [place] ?4. Abnormal MRI, [...] a smaller enhancing lesion at T11. These arenew compared with normal MRI Thoracic spine in [...] left wrist - G56.02, since July 2020 ?ASSESSMENT AND MEDICAL DECISION MAKING: July MRI brain done June 17, 2021 [...] Wu. He was seen by Libra Anderson, NUAR, at [facility] on April 15, 2021. They did OCT [...] will discuss various options next week on [id number]-[id number]-[id number] visit. I am leaning towards either fingolimod [...] will discuss this next week on the fsqg-nw-ssaf visit with the patient and his . [...] prior MRI brain in september 2019 at [facility]. He had an episode of blurred vision [...] Wu's kind referral. He was admitted to [facility] hospital admission on 10/26/19 for LEFT EYE [...] neuritis and got an urgent MRI at [facility] ON OCTOBER 11, which should multiple lesions in brain consistent with MS. MRI BRAIN WITH GADO ( 10/12/19), [facility]: multiple non- enhancing lesions--- Right LOWER ARCELIA, [...] Myelin basic protein. CSF NEGATIVE for VDRL, SHAHAAN,lyme index, .?? SPEP NORMAL DEDE, serum SHAHANA, SERUM LYME, : NORMAL NMO antibody negative . JCV antibody positive at 2.67. Long discussion. ? PLAN: OCREVUS STARTED January MRI brain done June [...] not have kicked in by that time. Kaylene, pt 's called me on my cell [...] with and without contrast done??January 22, 2022. ?? 3. B12 and folate deficiency: supplementation. 4. [...] brace otherwise we could do an EMG ?? Problem List/Past Medical History Ongoing No qualifying data Historical No qualifying data Medications Ocrevus 300 [...] day per day. Total pack years: 365. Attending Attestation ?? Risks, Benefits , alternatives [...] comments. ?? This document was prepared using [employer] voice recognition software.Please excuse any errors.?? Electronically Signed on 08/25/22 01:02 PM Jonnie Bello MD Patient Care team information Care Team Personnel Name: Frances Dominguez MD Position: Physician Member Role: Primary Care Physician Address: Address: [address] [place] [phone] [place] Care Team Related Persons Name: BETSY TORRES Address: Home [address] [place] [id number] [place]
--- OUTSIDE RECORDS SUMMARY | 2024-01-30 02:03 | XMS_ITS | Continuity of Care Document ---
Author Organization [facility] Ambulatory Clinics Address [address] [place] [address] Care Team Providers Care Galvanizer Name Role Phone Frances Dominguez MD Primary Care Physician Encounter [facility] NBR [id number] Date(s): 02/25/23 - 02/25/23 [facility] Ambulatory Clinics [address] [place], [place] [address] Discharge Disposition: Home Allergies, Adverse Reactions, Alerts No Known Allergies Assessment and Plan Future Appointments Future Scheduled Tests Laboratory* CBC w/ Diff 08/25/22 * Comprehensive Metabolic Panel 08/25/22 * Protein Elec + Interp, Serum LC 08/25/22 * Stratify JCV(TM) Ab w/Index LC 08/25/22 Radiology* MRI Brain w/ + w/o Contrast 03/12/23 * MRI Spine Cervical w/ + w/o Contrast 03/12/23 * MRI Spine Thoracic w/ + w/o Contrast 03/12/23 Medications Ocrevus 300 mg/10 mL intravenous solution [...] Vitamin D deficiency Confirmed Active 1left eye Social History Social History Type Response Tobacco Current everyday tob acco user Tobacco Use:. 1 pack a day per day. Total pack years: 365. Sex Male Patient Care team information Care Team Personnel Name: Frances Dominguez MD Position: No Access Member Role: Primary Care Physician Address: Address: [address] [place] [phone] [place] Care Team Related Persons Name: BETSY TORRES Address: Home [address] [place] [phone] [facility]
--- OUTSIDE RECORDS SUMMARY | 2024-01-30 02:03 | XMS_ITS | Continuity of Care Document ---
Author Organization [facility] Ambulatory Clinics Address [address] [place] [address] Care Team Providers Care Open Hearth Furnace Operator Name Role Phone Frances Dominguez MD Primary Care Physician Encounter [facility] NBR [id number] Date(s): 02/25/23 - 02/25/23 [facility] Ambulatory Clinics [address] [place], [place] [address] Discharge Disposition: Home Allergies, Adverse Reactions, Alerts [...] Member Role: Primary Care Physician Address: Address: [address] [place] [id number] [place] Care Team Related Persons Name: BETSY TORRES Address: Home [address] [place] [phone] [facility]
--- OUTSIDE RECORDS SUMMARY | 2024-01-30 02:04 | XMS_ITS | Clinical Summary ---
Author Organization [facility] Address [address] [place] [id number] Care Team Providers Care Piano Mover Name Role Phone Amie Ike Herrera DNP Primary Care Provider [phone] Social History Tobacco Use Types Packs/Day Years Used Date Smoking Tobacco: Never Assessed Interpersonal Safety Answer Date Record ed Physically Hurt Never 03/19/2020 Verbally Threaten Not on file 03/19/2020 Sex and Gender Information Value Date Recorded Sex Assigned at Not on file Gender Identity Not on file Sexual Orientation Not on file Plan of Treatment Health Maintenance Due Date Last Done Comments Hepatitis B Vaccine (1 of 3 - 19+ 3-dose series) 08/03 COVID-19 Vaccine ( season) 2022 Hepatitis C Screen Completed 11/30/2019 Procedures Procedure Name Priority Date/Time Associated Diagnosis Comments HEPATITIS C AB W REFLEX TO HCV RNA BY PCR Routine 11/30/2019 11:25 EDT from Last 3 Months or Most Recently Relevant to Health Maintenance Results * HEPATITIS C AB W REFLEX TO HCV RNA BY PCR (11/30/2019 11:25 EDT) Hep C Antibody Negative Negative 12/01/2019 9:44 EDT [facility] Blood VENOUS BLOOD / Unknown 11/30/2019 11:25 EDT 11/30/2019 20:32 EDT Provider Outr Resulting Lab CHEMISTRY & BLOOD GAS ORDERABLES [facility] [address] [place] [address] from Last 3 Months or Most Recently Relevant to Health Maintenance Care Teams Piano Mover Relationship Specialty Start Date End Date Ike Wynn, DNP [facility] [place] [address] PCP - General 11/24/20
--- OUTSIDE RECORDS SUMMARY | 2024-01-30 02:04 | XMS_ITS | Encounter Summary ---
Author Organization [facility] Address [facility] [place] [address] Care Team Providers Care Lehr Operator Name Role Phone Satinder Riley MD, Mark Primary Care Provider [phone] Reason for Visit * Reason Comments Tachycardia Encounter Details Date Type Department Care Team (Latest Contact Info) Description 12/04/2019 6:40 PM EDT Ext Surgery or Single Event Cardiology at [address] [place] [address] Jason Alba MD [facility] [place] [address] SVT (supraventricular tachycardia) Social History Tobacco Use Types Packs/Day Years Used Date Smoking Tobacco: Never Assessed Sex and Gender Information Value Date Recorded Sex Assigned at Not on file Gender Identity Not on file Sexual Orientation Not on file documented as of this encounter Plan of Treatment Not on file documented as of this encounter Procedures Procedure Name Priority Date/Time Associated Diagnosis Comments HOLTER MONITOR 24 HOUR Routine 12/04/2019 documented in this encounter Results * Holter Monitor 24hr (12/04/2019) Anatomical Region Laterality Modality Other Narrative 12/04/2019 Location: ??[facility] Referring: Yeseniadioirving Indication: ??SVT Duration of recording ? 23h59m Summary Data Predominant rhythm ? sinus rhythm Minimum sinus rate: 46 bpm Maximum sinus rate: 143 bpm Average sinus rate: 79 bpm Supraventricular Beats Very rare atrial premature beats (APC? s) There were 0 runs of SVT There was no atrial fibrillation Ventricular Beats Rare ventricular premature beats (VPC's) No high grade or sustained ventricular ectopy AV Node No high grade conduction block noted There were 0 patient diary events: Conclusion(s): ?? Predominant rhythm is sinus, with normal range and circadian variation No significant supraventricular or ventricular ectopy No symptoms noted for duration of study Electronically Signed: Jason Alba MD, 12/04/2019 9:25 AM Historical Provider MD [facility] ORDERABLES documented in this encounter Visit Diagnoses Diagnosis SVT (supraventricular tachycardia) Other specified cardiac dysrhythmias documented in this encounter Care Teams Lehr Operator Relationship Specialty Start Date End Date Wesly Rajan MD [address] [place] [address] [place] [address] PCP - General 03/18/10 documented as of this encounter
--- OUTSIDE RECORDS SUMMARY | 2024-01-30 02:04 | XMS_ITS | Continuity of Care Document ---
Author Organization [facility] Address [address] [place] [address] Care Team Providers Care Loan Originator Name Role Phone FRANCES DOMINGUEZ APRN Primary Care Physician Encounter [facility] NBR [id number] Date(s): 09/23/23 - 09/23/23 [facility] [address] [place] [address]- Encounter Diagnosis Subacromial impingement of right shoulder(Discharge Diagnosis) - 09/23/23 Incomplete rotator cuff tear or rupture of right shoulder, not specified as traumatic(Discharge Diagnosis) - 09/23/23 Biceps tendinitis of right shoulder(Discharge Diagnosis) - 09/23/23 Discharge Disposition: Home or Self Care Attending Physician: Ivan Pena MD Referring Physician: FRANCES DOMINGUEZ APRN Allergies, Adverse Reactions, Alerts No Known Allergies Assessment and Plan Extracted from: Title:[place] right shoulder H&P Author:Iavn jefferson MD Date:09/23/23 1.??Subacromial impingement of right shoulder??M75.41 2.??Incomplete rotator cuff tear or rupture of right shoulder, not specified as traumatic??M75.111 3.??Biceps tendinitis of right shoulder??M75.21 The patient demonstrates evidence of right shoulder pain and weakness secondary to chronic subacromial impingement syndrome,??a 50% supraspinatus insertional tear,??and 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 The treatment options were discussed with the patient has been on a course of??conservative treatment without relief.?? The patient opted to proceed with surgical management. ??The procedure of right??shoulder arthroscopy, CARLO, RCR, and OBT was described in detail to the patient as well as the associated risks, benefits, alternatives, possible complications, and postoperative course. ??The patient verbalized understanding and all questions were answered. ?? We will use the smallest dose of narcotics for the shortest period of time for their acute postoperative pain only. ??This will be in addition to icing, acetaminophen, physical therapy, and bracing. ??We will obtain consent and perform a risk assessment tool. ??We will also query the PDMP as needed. ?? The provider(s) are credentialed only at [facility]. ??This will be performed in an outpatient setting. ??There are no ambulatory surgery centers within this hospital system or our geographic region. ? Future Appointments Medications amoxicillin-clavulanate 875 mg-125 mg oral tablet 20 EA, 0 Refill(s), TAKE ONE TABLET BY MOUTH TWICE A DAY, 0 Refill(s) Start Date: 09/23/23 Status: Ordered Ocrevus 300 mg/10 mL intravenous solution 600 mg =, IV Piggyback, every 6 mo, 0 Refill(s) Start Date: 02/03/22 Status: Ordered omeprazole 20 mg oral delayed release capsule 20 mg = 1 cap, Oral, every night at bedtime Start Date: 08/25/22 Status: Ordered Problem List Condition Confirmation Course Effective Dates Status H ealth Status Informant Abnormal MRI thoracic spine Confirmed Active Abnormal Brain MRI Confirmed Active H/O Acute myelitis Confirmed Active Alcohol abuse Confirmed Active Biceps tendinitis of right shoulder [...] tachycardia Confirmed Active Personality disorder Confirmed Active Subacromial impingement of right shoulder Confirmed Active Vitamin B12 deficiency Confirmed Active Vitamin D deficiency Confirmed Active 1left eye Vital Signs Most recent to oldest [Reference Range]: 1 Peripheral Pulse Rate [60-100 bpm] 84 bp m (09/23/23 9:24 AM) Blood Pressure [90-140/60-90 mmHg] 142/8 0mmHg *HI* (09/23/23 9:24 AM) Mean Arterial Pressure, Cuff [65-140 mmH g] 101 mmHg (09/23/23 9:24 AM) Weight 124.74 kg (09/23/23 9:24 AM) Weight Measured (lbs) 275.004 lb (09/23/23 9:24 AM) Weight Dosing 124.740 kg (09/23/23 9:24 AM) Height 190.50 cm (09/23/23 9:24 AM) Height/Length Measured (inches) 75 inch (09/23/23 9:24 AM) BSA Measured 2.57 m2 (09/23/23 9:24 AM) Body Mass Index 34.37 kg/m2 (09/23/23 9:24 AM) Social History Social History Type Response Tobacco Current everyday tob acco user Tobacco Use:. 1 pack a day per day. Total pack years: 365. Sex Male Hospital Discharge Instructions Follow Up Care 09/10/2023 14:15:18 With:Surgery Address: When: Unknown Physician Outpatient Note * Ivan Pena MD: PERFORM Event Display: Office Clinic Note Physician Authored Date: [id number] BAR TORRES :1980 Age:43 years Sex:Male Visit Date:09/23/2023 Primary Care Physician: FRANCES DOMINGUEZ APRN Chief Complaint RIGHT SHOULDER PAIN MRI REVIEW History of Present Illness Please send a copy this note to Frances Dominguez APRN. ?? The patient is a 43-year-old Rh??female who is currently disabled secondary to multiple sclerosis. ??He is seen today at the kind request of Frances Dominguez APRN for the evaluation of right shoulder pain and weakness. ??The patient reports a greater than 1 year history of progressive right lateral shoulder pain that is worse with abduction and forward elevation type activities, particular those above the horizontal.?? The patient has been faithful about a daily home exercise program. ??The patient states that he received a corticosteroid injection in the past which??helped for only 15 minutes after which she experienced excruciating??progression of pain. ??He??therefore is unwilling to have another corticosteroid injection. ??He persists with weakness with overhead type activities.?? He hasoccasional numbness and tingling to the right upper extremity which he perceives to be secondary tohis underlying MS. ??His right shoulder has been waking him. ??He has been taking ibuprofen to address this. Review of Systems Review of systems is significant for bipolar disorder, multiple sclerosis, optic neuritis, paroxysmal SVT, and right shoulder pain and weakness.?? The patient denies known, active cardiopulmonary issues. Physical Exam Vitals & Measurements HR:??84??(Peripheral)?? BP:??142/80?? SpO2:??98%?? HT:??190.50??cm?? WT:??124.74??kg?? BMI:??34.37?? Pain Score:??7?? BSA:??2.57?? The patient's right upper extremity is neurovascularly intact.?? Sensation and motor exam are intact distally.?? All digits are warm and pink.?? No Omar deformity or obvious atrophy is present.?? Active forward elevation and external rotation are full, with pain on terminal elevation and abduction.?? Internal rotation behind the back lacks 2 vertebral levels as compared with the left side.?? Neer and Mendoza signs are positive.?? Drop arm test negative.?? Strength is 4 out of 5 to elevation, 5 out of 5 to external and internal rotation strength testing.?? The AC joint is nontender.?? Crossarm adduction test negative.?? He has tenderness about the proximal bicipital groove.?? Speed's Test and Boulder signs are positive.?? He additionally has tenderness about the anterior aspect of the greater tuberosity. ?? Cardiovascular: Regular rate and rhythm. ??Pulmonary clear. 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 The treatment options were discussed with the patient has been on a course of??conservativetreatment without relief.?? The patient opted to proceed with surgical management. ??The procedure of right??shoulder arthroscopy, CARLO, RCR, and OBT was described in detail to the patient as well asthe associated risks, benefits, alternatives, possible complications, and postoperative course. ??The patient verbalized understanding and all questions were answered. ?? We will use the smallest dose of narcotics for the shortest period of time for their acute postoperative pain only. ??This will be in addition to icing, acetaminophen, physical therapy, and bracing. ??We will obtain consent and perform a risk assessment tool. ??[facility]. ?? The provider(s) are credentialed only at [facility]. ??This will be performedin an outpatient setting. ??There are no ambulatory surgery centers within this hospital system or our geographic region. Follow Up Instructions With When Contact Information Surgery Additional Instructions: Problem List/Past Medical History Ongoing Abnormal Brain MRI Abnormal MRI thoracic spine Alcohol abuse Biceps tendinitis of right shoulder Bipolar Carpal tunnel syndrome of left wrist Folate deficiency H/O Acute myelitis H/O: visual disturbance History of COVID-19 Human polyomavirus JCV 2 positive Incomplete rotator cuff tear or rupture of right shoulder, not specified as traumatic Multiple sclerosis Optic neuritis Paroxysmal supraventricular tachycardia Personality disorder Subacromial impingement of right shoulder Vitamin B12 deficiency Vitamin D deficiency Historical No qualifying data Medications amoxicillin-clavulanate 875 mg-125 mg oral tablet Ocrevus 300 mg/10 mL [...] 365. Family History Family history is negative Diagnostic Results Diagnostic Study Interpretation: MRI of the patient's right shoulder obtained on 05/10/2023 demonstrates mild glenohumeral osteoarthritic changes.?? He demonstrates a PASTA lesion of the supraspinatus insertion that involves approximately 50% of the insertional tendon thickness.?? No muscular atrophy is present.?? The long of the biceps tendon appears to be intact. Electronically Signed on 09/23/2023 15:40 EDT Ivan Pena MD Patient Care team information Care Team Personnel Name: FRANCES DOMINGUEZ APRN Position: No Access Member Role: Primary Care Physician Address: Address: [address] [place] [address]- Care Team Related Persons Name: BETSY TORRES Address: Home [address], [place] [id number] [facility] Name: RICCI ROBINS Name: TERRY LARSEN
--- OUTSIDE RECORDS SUMMARY | 2024-01-30 02:04 | XMS_ITS | Continuity of Care Document ---
Author Organization [facility] Ambulatory Clinics Address [address] [place] [address] Care Team Providers Care Dev Ops Engineer Name Role Phone BELEN HU APRN Primary Care Physician Encounter [facility] NBR [id number] Date(s): 08/02/23 - 08/02/23 [facility] Ambulatory Clinics [address] [place], [place] [id number] Encounter Diagnosis Multiple sclerosis(Discharge Diagnosis) - 08/02/23 H/O Acute myelitis(Discharge Diagnosis) - 08/02/23 Vitamin B12 deficiency(Discharge Diagnosis) - 08/02/23 SHER virus antibody positive(Discharge Diagnosis) - 08/02/23 Discharge Disposition: Home or Self Care Attending Physician: Jonnie Bello MD Allergies, Adverse Reactions, Alerts No Known Allergies Assessment and Plan Extracted from: Title:neUROLOGY f/u ms Author:Jonnie Bello MD Date:08/02/23 1.??Multiple sclerosis??G35 08/02/23 ?? This very pleasant gentleman comes for follow-up evaluation of his multiple sclerosis.?? I had last seen him??on February 23, 2023. ?? We repeated his MRI brain??cervical and thoracic spine on March 12, 2023.?? MRI of his??cervical spine did not show any lesions.?? MRI brain and thoracic spine done with and without contrast on March 12, 2023??was very stable??and did not show any new lesions as compared to previous scans. ?? Please also dents some labs??in February 2023.?? His??CBC??showed macrocytosis which has been longstanding. ?? His SHER virus index was 2.28.?? He has been SHER virus positive??for a long time. ? I gave him a copy of all his MRI reports. ?? He is due for his next infusion next month??for the Ocrevus infusion. ?? He has some right shoulder issue and is being followed by his primary care. ?? 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 ? I had a long discussion with the patient and I explained to him that I will be leaving the[facility] in April 2024.?? I discussed with him about transfer of care to Dr. Riaz Wells or Elpidio Cho APRN.?? He is comfortable with transfer to Elpidio Cho APRN.?? Will set him up for a follow-up appointment in 6 months with Elpidio Cho. ?? For now we will recheck his labs. ?? I thanked him for putting the trust in me all these years.?? It has been on her and privilege taking care of him.?? I wish him all the very best. ? REVIEW OF PRIOR RECORDS 02/23/23 ?? Multiple sclerosis??G35 ??January ?? This very pleasant gentleman comes for [...] brain cervical spine and thoracic spine. ? His multiple sclerosis appears stable. ?? We will get his labs today. ?? We will repeat his MRI brain cervical spine and thoracic spine??because the last time it was done was December 2021 which is more than a year back. ?? His next Ocrevus infusion is on??March 23, 2023 ?? Follow-up in 6 months ? 08/25/22 ?Multiple sclerosis??G35 ?August 25, 2022 ?This gentleman comes for follow-up of his multiple [...] vision is okay.?? He saw the eye doctor about a month back. ?? He is tolerating the Ocrevus infusions quite well. ?? I want to give him the most aggressive treatment for multiple sclerosis given the fact that he does not want his brain his eyes and also the spinal cord.?? He has a T11 lesion which led to numbness in both his legs.?? This happened within a month of getting the Ocrevus infusion??which was his first infusion.?? But I think by that time the??Ocrevus had not kicked in. ?. ?? We will continue his Ocrevus infusions. ?? His next infusion is on??September 15, 2022 ?? I would like to get lab work-up. ?? I would also like to check his SHER virus status ?? Follow-up in 6 months ?2.??Optic neuritis??H46.9 ?3.??Demyelinating disease of the spinal cord??G37.9 ?January ?Multiple sclerosis??G35 ? January ?This pleasant gentleman [...] MRI brain 01/24/20 [facility] with gado - NO change as compared [...] MRI of the orbits is unremarkable ?2. ?? Acute myelitis - G04.91, presenting as bilateral heel numbness starting 12/08/20;MRI thoracic spine with and w/o Gd+ 12/25/20 shows a prominent enhancing lesion at T7- 8 and a smaller enhancing lesion at T11. [...] H46.9, left eye august 2019; admitted to [facility] 10/26/19 iv [place] ?4. Abnormal MRI, [...] E55.9 ?9. ETOH abuse - F10.10 ?10. ? SHER virus antibody positive - R76.8 ?11. PSVT (paroxysmal supraventricular tachycardia) - I47.1 ?12. Carpal tunnel syndrome of left wrist - G56.02, since July 2020 ?July MRI brain done June 17, 2021 reviewed [...] within 3 weeks after getting the Ocrevus infusion. It is because the Ocrevus may not have [...] was seen by Libra Anderson, NURA, at [facility] on April 15, 2021. They did OCT [...] early in the morning saying that the patient was not able to put weight on the right leg. I asked him to come to the emergency department and he was subsequently admitted. MRI of the lumbar spine showed a disc bulge impinging on his [...] patient and give a dose of IV Solu- Medrol. I do not believe his neurological deficits [...] will discuss various options next week on rtok-kn-marv visit. I am leaning towards either fingolimod [...] will discuss this next week on the elsn-zb-kspt visit with the patient and his . [...] prior MRI brain in september 2019 at [facility]. He had an episode of blurred vision in right eye 02/2020 but went away. He did not call us. Emphasized that anytime this happens , he should immediately call us. Vision is good in left eye ---- ?VEP results ( November 2019) VA: OS 20/30-- P100 latency: 141.9ms VA: OD 20/25-- P100 LATENCY: 99 MS vep consistent with OPTIC NEURITIS left eye ?MRI of the cervical spine with gadolinium October 2019was unremarkable and did not show any lesions. MRI of the thoracic spine with gadolinium October 2019 did not show any lesions. ??Holter monitoring for [address] Jason Alba was normal. Appreciate Dr. Mague Wu's kind referral. He was admitted to [facility] hospital admission on 10/26/19 for LEFT EYE OPTIC NEURITIS that developed end of August 2019.?? Around mid to Late August 2019, he started having cough, left sided neck pain and left sided HEWITT. Then his vision on left eye became foggy. His eyes would hurt if he moved it to left or right. He saw Dr. Mague Wu around mid September 2019. Dr. Wu dx him with optic neuritis and got an urgent MRI at [facility] ON OCTOBER 11, which should multiple lesions in brain consistent with MS. MRI BRAIN WITH GADO ( 10/12/19), [facility]: multiple non- enhancing lesions--- Right LOWER ARCELIA, Right TEMPORAL, Right OCCIPITAL, posterior Corpus Callosum , rostral and dorsal Mid Brain, , left OCCIPITAL He has B12 deficiency of 135 on 10/26/19. His folate is low a t4.2 ( normal > 6). His vitamin D is low at 28.8 on 10/26/19. CSF : Normal glucose, protein, cell count. NO oligoclonal bands. Normal IgG SYNTHESIS REATE. ELEVATED Myelin basic protein. CSF NEGATIVE for VDRL, SHAHANA,lyme index, .?? SPEP NORMAL DEDE, serum SHAHANA, SERUM LYME, : NORMAL NMO antibody negative . ?JCV antibody positive at 2.67. ??Long discussion. ?OCREVUS STARTED January ??MRI brain done June 17, 2021 reviewed with [...] within 3 weeks after getting the Ocrevus infusion. It is because the Ocrevus may not have [...] within 3 weeks after getting the Ocrevus infusion. It is because the Ocrevus may not have [...] supplementation. 4. Vitamin D deficiency: supplementation 5. ?JCV positive at 2.67-- need to be careful when choosing DMT's ??6. ETOH abuse: strongly urged to quit 7. SMOKING; strongly urged to quit; asked to discuss with PCP regarding cessatin programs for both smoking and etoh 8.PSVT: Holter monitoring is normal 9. His left hand numbness could be due to carpal tunnel syndrome he could benefit from wearing wrist brace otherwise we could do an EMG ?PLAN: ? 08/02/23 08/02/23 ?? This very pleasant gentleman comes for follow-up evaluation of his multiple sclerosis.?? I had last seen him??on February 23, 2023. ?? We repeated his MRI brain??cervical and thoracic spine on March 12, 2023.?? MRI of his??cervical spine did not show any lesions.?? MRI brain and thoracic spine done with and without contrast on March 12, 2023??was very stable??and did not show any new lesions as compared to previous scans. ?? Please also dents some labs??in February 2023.?? His??CBC??showed macrocytosis which has been longstanding. ?? His SHER virus index was 2.28.?? He has been SHER virus positive??for a long time. ? I gave him a copy of all his MRI reports. ?? He is due for his next infusion next month??for the Ocrevus infusion. ?? He has some right shoulder issue and is being followed by his primary care. ?? 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 ? I had a long discussion with the patient and I explained to him that I will be leaving the[facility] practice in April 2024.?? I discussed with him about transfer of care to Dr. Riaz Welsl or Elpidio Cho APRN.?? He is comfortable with transfer to Elpidio Cho APRN.?? Will set him up for a follow-up appointment in 6 months with Elpidio Cho. ?? For now we will recheck his labs. ?? I thanked him for putting the trust in me all these years.?? It has been on her and privilege taking care of him.?? I wish him all the very best. ? 2.??H/O Acute myelitis??G04.91 3.??Vitamin B12 deficiency??E53.8 4.??SHER virus antibody positive??R76.8 Future Appointments Future Scheduled Tests Laboratory* CBC w/ Diff 08/25/22 * Comprehensive Metabolic Panel 08/25/22 Medications Ocrevus 300 mg/10 mL intravenous solution [...] Range]: 1 Peripheral Pulse Rate [60-100 bpm] 71 bp m (08/02/23 12:25 PM) Blood Pressure [90-140/60-90 mmHg] 141/9 3mmHg *HI* (08/02/23 12:25 PM) Mean Arterial Pressure, Cuff [65-140 mmH g] 109 mmHg (08/02/23 12:25 PM) Weight 126.46 kg (08/02/23 12:25 PM) Weight Measured (lbs) 278.796 lb (08/02/23 12:25 PM) Weight Dosing 126.460 kg (08/02/23 12:25 PM) [place] Body Weight Calculated 84.5 kg (08/02/23 12:25 PM) Height 190.50 cm (08/02/23 12:25 PM) Height/Length Measured (inches) 75 inch (08/02/23 12:25 PM) BSA Measured 2.59 m2 (08/02/23 12:25 PM) Body Mass Index 34.85 kg/m2 (08/02/23 12:25 PM) Social History Social History Type Response Tobacco Current everyday tob acco user Tobacco Use:. 1 pack a day per day. Total pack years: 365. Sex Male Physician Outpatient Note * Jonnie Bello MD: PERFORM Event Display: Office Clinic Note Physician Authored Date: [id number] BAR TORRES :1980 Age:42 years Sex:Male Visit Date:08/02/2023 Primary Care Physician: BELEN HU APRN Chief Complaint Pt comes today by himself for a 6 month MS follow up. He notes a bit of pain in his right arm and had MRI done that showed a small tear and sent him to physical therapy. He feels it is more than a tear. History of Present Illness 08/02/23 ?? This very pleasant gentleman comes for follow-up evaluation of his multiple sclerosis.?? I had lastseen him??on February 23, 2023. ?? We repeated his MRI brain??cervical and thoracic spine on March 12, 2023.?? MRI of his??cervicalspine did not show any lesions.?? MRI brain and thoracic spine done with and without contrast on March 12, 2023??was very stable??and did not show any new lesions as compared to previous scans. ?? Please also dents some labs??in February 2023.?? His??CBC??showed macrocytosis which has been longstanding. ?? His SHER virus index was 2.28.?? He has been SHER virus positive??for a long time. ? I gave him a copy of all his MRI reports. ?? He is due for his next infusion next month??for the Ocrevus infusion. ?? He has some right shoulder issue and is being followed by his primary care. ?? 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 ? I had a long discussion with the patient and I explained to him that I will be leaving the[facility] practice in April 2024.?? I discussed with him about transfer of care to Dr. Riaz Wells or Elpidio Cho APRN.?? He is comfortable with transfer to Elpidio Cho APRN.?? Will set him up for a follow- up appointment in 6 months with Elpidio Cho. ?? For now we will recheck his labs. ?? I thanked him for putting the trust in me all these years.?? It has been on her and privilege taking care of him.?? I wish him all the very best. Review of Systems ?? The patient has no additional neurologic, psychiatric, head, ears, eyes, nose, throat, pulmonary, cardiovascular, gastrointestinal, musculoskeletal, skin, endocrine, renal, immunological, allergic, lymphoid, rheumatologic??and hematological symptoms other than those noted above Physical Exam Vitals & Measurements HR:??71??(Peripheral)?? BP:??141/93?? HT:??190.50??cm?? WT:??126.46??kg?? BMI:??34.85?? BSA:??2.59?? He is pleasant awake alert oriented. ??Speech and language are normal. ??Visual murdock are full. ??Eye movements are intact muscle strength is 5/5.?? Deep tendon reflexes knee jerks are 2+ rest are absent.?? Gait is unremarkable; Fundus exam shows pallor in the left eye??fundus.?? The right??fundus is normal Assessment/Plan 1.??Multiple sclerosis??G35 08/02/23 ?? This very pleasant gentleman comes for follow-up evaluation of his multiple sclerosis.?? I had lastseen him??on February 23, 2023. ?? We repeated his MRI brain??cervical and thoracic spine on March 12, 2023.?? MRI of his??cervicalspine did not show any lesions.?? MRI brain and thoracic spine done with and without contrast on March 12, 2023??was very stable??and did not show any new lesions as compared to previous scans. ?? Please also dents some labs??in February 2023.?? His??CBC??showed macrocytosis which has been longstanding. ?? His SHER virus index was 2.28.?? He has been SHER virus positive??for a long time. ? I gave him a copy of all his MRI reports. ?? He is due for his next infusion next month??for the Ocrevus infusion. ?? He has some right shoulder issue and is being followed by his primary care. ?? 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 ? I had a long discussion with the patient and I explained to him that I will be leaving the[facility] practice in April 2024.?? I discussed with him about transfer of care to Dr. Riaz Wells or Elpidio Cho APRN.?? He is comfortable with transfer to Elpidio hCo APRN.?? Will set him up for a follow- up appointment in 6 months with Elpidio Cho. ?? For now we will recheck his labs. ?? I thanked him for putting the trust in me all these years.?? It has been on her and privilege taking care of him.?? I wish him all the very best. ?? REVIEW OF PRIOR RECORDS 02/23/23 ?? Multiple sclerosis??G35 ??January ?? This very pleasant gentleman comes for [...] brain cervical spine and thoracic spine. ? His multiple sclerosis appears stable. ?? We will get his labs today. ?? We will repeat his MRI brain cervical spine and thoracic spine??because the last time it was done was December 2021 which is more than a year back. ?? His next Ocrevus infusion is on??March 23, 2023 ?? Follow-up in 6 months ? 08/25/22 ?Multiple sclerosis??G35 ?August 25, 2022 ?This gentleman comes for follow-up of his multiple [...] vision is okay.?? [facility]. ?? He is [...] virus status ?? Follow-up in 6 months ?2.??Optic neuritis??H46.9 ?3.??Demyelinating disease of the spinal cord??G37.9 ?January ?Multiple sclerosis??G35 ? January ?This pleasant gentleman comes for follow-up evaluation of his multiple sclerosis.?? His last infusion of Ocrevus??was??in??August 2021.?? His next Ocrevus infusion is in February 2022. ?? He says he is doing reasonably well. ?MRI of the brain done January 22, 2022??is unchanged as compared to the previous MRI of thebrain??done??June 17, 2021.?? No new lesions or interval [...] Ocrevus since January 2021; OPTIC NEURITIS IN 2019;ACUTE THORACIC MYELITIS 11/2020- ;enhancing lesions in T7- 8,T11; also enhancing lesions in brain- adjacent to right lateral ventricle anterior horn and posterior horn, MRI brain 01/24/20 [facility] with gado - NO change as compared [...] the posterior horn of the right lateral ventricle;and another enhancing area in the left posterior occipital area. These enhancing lesions are new ascompared to the prior MRI in December 2020 [...] cord and hence explain his symptoms of numb ness in his feet. ?3. Optic neuritis - H46.9, left eye august 2019; admitted to [facility] 10/26/19 iv [place] ?4. Abnormal MRI, thoracic spine - R93.7, 12/25/20-MRI thoracic spine with and w/o Gd+ 12/25/20 shows a prominent enhancing lesion at T7-8 and a smaller enhancing lesion at T11. These are new compared with normal MRI Thoracic spine in November 2019. Both these lesions are on the DORSAL ASPECT of thespinal cord and hence explain his symptoms of numbness in his feet., MRI thoracic spine with and w/o Gd+ 12/25/20 shows a prominent enhancing lesion at T7-8 and a smaller enhancing lesion at T11. Theseare new compared with normal MRI Thoracic spine [...] right anterior horn of right lateral ventricle. Thereis also a smaller tiny enhancing lesion adjacent [...] left wrist - G56.02, since July 2020 ?July MRI brain done June 17, 2021 reviewed [...] was seen by Libra Anderson, NURA, at [facility] on April 15, 2021. They did OCT [...] will discuss various options next week on jymi-hl-ynft visit. I am leaning towards either fingolimod [...] will discuss this next week on the ziln-ff-burf visit with the patient and his . [...] prior MRI brain in september 2019 at [facility]. He had an episode of blurred vision in right eye 02/2020 but went away. He did not call us. Emphasized that anytime this happens , he should immediately call us. Vision is good in left eye ---- ??VEP results ( November 2019) VA: OS 20/30-- P100 latency: 141.9ms VA: OD 20/25-- P100 LATENCY: 99 MS vep consistent with OPTIC NEURITIS left eye ??MRI of the cervical spine with gadolinium October 2019was unremarkable and did not show any lesions. MRI of the thoracic spine with gadolinium October 2019 did not show any lesions. ??Holter monitoring for [address] Jason Alba was normal. Appreciate Dr. Mague Wu's kind referral. He was admitted to [facility] hospital admission on 10/26/19 for LEFT EYE [...] neuritis and got an urgent MRI at [facility] ON OCTOBER 11, which should multiple lesions in brain consistent with MS. MRI BRAIN WITH GADO ( 10/12/19), [facility]: multiple non- enhancing lesions--- Right LOWER ARCELIA, [...] LYME, : NORMAL NMO antibody negative . ??JCV antibody positive at 2.67. ??Long discussion. ?OCREVUS STARTED January ??MRI brain done June 17, 2021 reviewed with [...] supplementation. 4. Vitamin D deficiency: supplementation 5. ??JCV positive at 2.67-- need to be careful when choosing DMT's ??6. ETOH abuse: strongly urged to quit 7. SMOKING; strongly urged to quit; asked to discuss with PCP regarding cessatin programs for both smoking and etoh 8.PSVT: Holter monitoring is normal 9. His left hand numbness could be due to carpal tunnel syndrome he could benefit from wearing wrist brace otherwise we could do an EMG ?PLAN: ?? 08/02/23 08/02/23 ?? This very pleasant gentleman comes for follow-up evaluation of his multiple sclerosis.?? I had lastseen him??on February 23, 2023. ?? We repeated his MRI brain??cervical and thoracic spine on March 12, 2023.?? MRI of his??cervicalspine did not show any lesions.?? MRI brain and thoracic spine done with and without contrast on March 12, 2023??was very stable??and did not show any new lesions as compared to previous scans. ?? Please also dents some labs??in February 2023.?? His??CBC??showed macrocytosis which has been longstanding. ?? His SHER virus index was 2.28.?? He has been SHER virus positive??for a long time. ? I gave him a copy of all his MRI reports. ?? He is due for his next infusion next month??for the Ocrevus infusion. ?? He has some right shoulder issue and is being followed by his primary care. ?? 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 ? I had a long discussion with the patient and I explained to him that I will be leaving the[facility] practice in April 2024.?? I discussed with him about transfer of care to Dr. Riaz Wells or Elpidio Cho APRN.?? He is comfortable with transfer to Elpidio Cho APRN.?? Will set him up for a follow- up appointment in 6 months with Elpidio Cho. ?? For now we will recheck his labs. ?? I thanked him for putting the trust in me all these years.?? It has been on her and privilege taking care of him.?? I wish him all the very best. ?? 2.??H/O Acute myelitis??G04.91 3.??Vitamin B12 deficiency??E53.8 4.??SHER virus antibody positive??R76.8 Problem List/Past Medical History Ongoing Abnormal Brain [...] comments. ?? This document was prepared using [employer] voice recognition software.Please excuse any errors.?? Electronically Signed on 08/02/23 12:55 PM Jonnie Bello MD Patient Care team information Care Team Personnel Name: BELEN HU APRN Position: No Access Member Role: Primary Care Physician Address: Address: [address] [place] [address]- Care Team Related Persons Name: BETSY TORRES Address: Home [address], [place] [id number] [facility]
--- OUTSIDE RECORDS SUMMARY | 2024-01-30 02:04 | XMS_ITS | Continuity of Care Document ---
Author Organization [facility] Ambulatory Clinics Address [address] [place] [address] Care Team Providers Care Supervisor Inspecting Name Role Phone BELEN HU APRN Primary Care Physician Encounter [facility] NBR [id number] Date(s): 08/02/23 - 08/02/23 [facility] Ambulatory Clinics [address] [place] [address]- us Discharge Disposition: Home Allergies, Adverse Reactions, Alerts [...] Condition Confirmation Course Effective Dates Status H ealt Status Informant Abnormal MRI thoracic spine Confirmed [...] Member Role: Primary Care Physician Address: Address: [address] [address] Care Team Related Persons Name: BETSY TORRES Address: Home [address] [place], [place] [id number] [facility]
--- OUTSIDE RECORDS SUMMARY | 2024-01-30 02:04 | XMS_ITS | Continuity of Care Document ---
Author Organization [facility] Address [address] [place] [phone] Care Team Providers Care Housing Counselor Name Role Phone BELEN HU APRN Primary Care Physician Encounter [facility] NBR [id number] Date(s): 05/10/23 - 05/10/[address] [address] Encounter Diagnosis Pain in right shoulder(Final) - Discharge Disposition: Home or Self Care Attending Physician: BELEN HU APRN Admitting Physician: BELEN HU APRN Referring Physician: BELEN HU APRN Allergies, Adverse Reactions, Alerts No Known Allergies Assessment and Plan Future Appointments Future Scheduled Tests Laboratory* CBC w/ Diff 08/25/22 * Comprehensive Metabolic Panel 08/25/22 * Protein Elec + Interp, Serum LC 08/25/22 * Stratify JCV(TM) Ab w/Index LC 08/25/22 Medications Ocrevus 300 mg/10 mL intravenous [...] D deficiency Confirmed Active 1left eye Results Radiology Reports * Exam Date Time Procedure Performing Provider Status 05/10/23 4:39 PM MRI Shoulder w/o Contrast Right Claudy dereje, Consuelo; Auth (Verified) Notes: (MRI Shoulder w/o Contrast Right) Reason For Exam: SHOULDER PAIN MRI Shoulder w/o Contrast Right PROCEDURE INFORMATION: Exam: MR Right Upper Extremity Joint Without Contrast; Shoulder Exam date and time: 05/10/2023 4:04 PM Age: 42 years old Clinical indication: Pain; Shoulder; Right; Additional info: Shoulder pain TECHNIQUE: Imaging protocol: Magnetic resonance imaging of the right upper extremity without contrast. Exam focused on the shoulder. COMPARISON: MR SPINE CERVICAL WWO CONTRAST 03/12/2023 8:17 AM FINDINGS: Bones/joints: No abnormal volume of glenohumeral joint fluid. Osseous structures are aligned normally. No linear fracture or concerning osseous lesion. Subchondral bone marrow edema in the osseous glenoid and medial humeral head is present. Joint space narrowing and AC joint osteophyte formation suggests mild OA. No large inferiorly directed subacromial spur. Degenerative chondral thinning is present within the glenohumeral joint . Rotator interval: Coracoacromial arch ligaments and rotator interval structures appear normal. Glenoid labrum: No evidence of traumatic posterosuperior glenoid labrum detachment. There is anterior labral irregularity extending into the middle glenohumeral joint into the anterior inferior labral margin and there is irregularity of the posterior inferior labrum Supraspinatus tendon: Supraspinatus demonstrates mild anterior tendinopathy change and low-grade partial undersurface tear involving less than 50% of tendon thickness. Muscle bulk and signal of the supraspinatus is normal. Infraspinatus tendon: Infraspinatus tendon appears intact. Normal infraspinatus muscle bulk and signal is preserved. Subscapularis tendon: Subscapularis tendon appears intact. Normal subscapularis muscle bulk and signal in the imaged portions. Teres minor tendon: Teres minor appears normal. Tendon of biceps brachii: Long head biceps tendon lies in the intertubercular sulcus. Intact biceps anchor. Glenohumeral ligaments: Superior, middle and inferior glenohumeral ligaments appear intact. Soft tissues: No subcutaneous soft tissue edema, subcutaneous fluid collection or soft tissue defect. IMPRESSION: 1. Mild supraspinatus tendinopathy and low-grade partial undersurface tear anteriorly. No full-thickness component 2. Degenerative osteoarthrosis involving the glenohumeral joint and AC joint, and probable degenerative tears involving the anterior and posteroinferior glenoid labrum. Appearance does not suggest an acute linear tear but could be evaluated further using MR arthrography THIS DOCUMENT HAS BEEN ELECTRONICALLY SIGNED BY ARAM WATERS MD on 05/10/2023 07:32 PM Final Signed by: Aram Waters MD Signed (Electronic Signature): 05/10/2023 7:32 pm Social History Social History Type Response Tobacco Current everyday tob acco user Tobacco Use:. 1 pack a day per day. Total pack years: 365. Sex Male Patient Care team information Care Team Personnel Name: BELEN HU APRN Position: No Access Member Role: Primary Care Physician Address: Address: [address] [place] [address] Care Team Related Persons Name: BETSY TORRES Address: Home [address] [place] [id number] [facility]
--- OUTSIDE RECORDS SUMMARY | 2024-01-30 02:04 | XMS_ITS | Clinical Summary ---
Author Organization [place] [address] Care Team Providers Care Auto Motor Mechanic Name Role Phone Satinder Riley MD, Wesly Primary Care Provider [phone] Social History Tobacco Use Types Packs/Day Years Used Date Smoking Tobacco: Never Assessed Sex and Gender Information Value Date Recorded Sex Assigned at Not on file Gender Identity Not on file Sexual Orientation Not on file Plan of Treatment Health Maintenance Due Date Last Done Comments HIV screen 1998 Hepatitis C Screening 1998 Lipid Screening 1998 Hepatitis B vaccine (0-59 yrs) (1) 08/04/1999 Tetanus/Diphtheria/Pertussis Vaccines (1 - Tdap) 08/03 Covid-19 Vaccine (1 - 2022-24 season) 2023 Influenza (Flu) vaccine (1 o f 1 - Influenza standard series) 12/26/2023 Care Teams Auto Motor Mechanic Relationship Specialty Start Date End Date Wesly Rajan MD [place], [place] [phone] PCP - General 03/18/10
--- OUTSIDE RECORDS SUMMARY | 2024-01-30 02:04 | XMS_ITS | Continuity of Care Document ---
Author Organization [facility] Address [address] [place] [phone] Care Team Providers Care Solar Development Engineer Name Role Phone Frances Dominguez MD Primary Care Physician [phone] Encounter [facility] NBR [id number] Date(s): 03/12/23 - 03/12/[address] [address] Discharge Disposition: Home or Self Care [...] Exam Date Time Procedure Performing Provider Status 03/12/23 9:56 AM MRI Spine Thoracic w / + w/o Contrast Meenakshi Martinez; Auth (Verified) Notes: (MRI Spine Thoracic w/ + w/o Contrast) Reason For Exam: MS MRI Spine Thoracic w/ + w/o Contrast EXAM DESCRIPTION: MRI Spine Thoracic w/ + w/o Contrast 03/12/2023 INDICATION: MS TECHNIQUE: Multiplanar MRI examination of the thoracic spine utilizing T1, fat-suppressed T2 and fast STIR technique. Postcontrast axial and sagittal T1 weighted images were also obtained. 20 mL of MultiHance contrast was utilized COMPARISON: MRI thoracic spine with and without contrast from 01/22/2022 FINDINGS: The previously described small T2 hyperintense lesions suspicious for demyelination in the thoracic spinal cord at the T8 and T11 levels appear without significant change. No new T2 hyperintense thoracic spinal cord lesions. Postcontrast images demonstrate no abnormal enhancement. Lateral thoracic spine alignment is satisfactory T7-8: Broad-based central disc protrusion. This encroaches on the ventral aspect of the thoracic spinal cord with mild cord effacement. Posterior CSF space is maintained. No significant change from prior study. Remaining levels demonstrate no focal disc protrusion or significant stenosis. Neural foramina appear without significant encroachment throughout the thoracic region. No suspicious regional marrow lesions. No vertebral body compression deformity in the thoracic region Paraspinal soft tissues are unremarkable. IMPRESSION: Stable small T2 hyperintense lesions in the thoracic spinal cord at the T8 and T11 levels suggesting demyelination. No new thoracic spinal cord lesions. Postcontrast images demonstrate no abnormal enhancement to suggest active demyelination Central disc protrusion at T7-8 without significant change. Remaining levels demonstrate no focal disc protrusion or significant stenosis. JOB #: [id number] Final Signed by: Mario Camp MD Signed (Electronic Signature): 03/12/2023 10:29 am * Exam Date Time Procedure Performing Provider Status 03/12/23 9:56 AM MRI Spine Cervical w / + w/o Contrast Meenakshi Martinez; Auth (Verified) Notes: (MRI Spine Cervical w/ + w/o Contrast) Reason For Exam: MS MRI Spine Cervical w/ + w/o Contrast EXAM DESCRIPTION: MRI Spine Cervical w/ + w/o Contrast 03/12/2023 INDICATION: MS TECHNIQUE: Multiplanar MRI examination of the cervical spine utilizing T1, fat-suppressed T2 and fast STIR technique. Postcontrast axial and sagittal T1 weighted images were also obtained 20 mL of MultiHance contrast was utilized COMPARISON: MRI cervical spine with and without contrast from 01/22/2022 FINDINGS: Lateral cervical spine alignment is satisfactory No intrinsic signal abnormality within the cervical spinal cord to suggest demyelination, edema or myelomalacia with no evidence of syrinx. Postcontrast images demonstrate no abnormal enhancement C2-3: No focal disc protrusion, significant spinal stenosis or neural foraminal narrowing. C3-4: No focal disc protrusion, significant spinal stenosis or neural foraminal narrowing. C4-5: No focal disc protrusion, significant spinal stenosis or neural foraminal narrowing. C5-6: Mild broad-based central/left paracentral disc osteophyte complex with mild left lateral recess stenosis. No cord encroachment or significant central stenosis. No significant neural foraminal narrowing C6-7: Broad-based central disc osteophyte complex. No cord encroachment or deformity with AP spinal canal diameter of 8.1 mm. Bilateral uncovertebral spurring with significant bilateral neural foraminal narrowing which appears worse since prior study. C7-T1: No focal disc protrusion, significant spinal stenosis or neural foraminal narrowing. No suspicious regional marrow lesions. No vertebral body compression deformity in the cervical region Paraspinal soft tissues are unremarkable. IMPRESSION: No focal spinal cord lesions to suggest demyelination with no abnormal enhancement Spondylotic changes in the lower cervical region. No significant central stenosis or cord encroachment. Significant bilateral neural foraminal narrowing at C6-7 which appears worse since prior study. Please see above discussion for individual level description. JOB #: [id number] Final Signed by: Mario Camp MD Signed (Electronic Signature): 03/12/2023 10:21 am * Exam Date Time Procedure Performing Provider Status 03/12/23 9:56 AM MRI Brain w/ + w/o Contrast Meenakshi Martinez; Auth (Verified) Notes: (MRI Brain w/ + w/o Contrast) Reason For Exam: multiple sclerosis MRI Brain w/ + w/o Contrast EXAM DESCRIPTION: MRI Brain w/ + w/o Contrast 03/12/2023 INDICATION: MULTIPLE SCLEROSIS TECHNIQUE: Technique: Multiplanar MRI examination of the head including FLAIR and diffusion series. Postcontrast T1-weighted images were obtained in 3 planes. 20 mL of MultiHance contrast was utilized COMPARISON: MRI head with and without contrast from 01/22/2022 FINDINGS: Several foci of periventricular and subcortical white matter T2 signal prolongation bilaterally consistent with demyelination and clinical history of MS without significant change from prior study. No new white matter lesions. Postcontrast images demonstrate no abnormal enhancement to suggest active demyelination. No intracranial mass, mass effect or midline shift. Diffusion weighted images demonstrate no focal area of acute or recent infarct. No hydrocephalus, extra-axial fluid collection or blood breakdown products. Cerebellar tonsil position is normal. The pituitary gland demonstrates normal morphology and signal intensity. No significant temporal horn asymmetry Visualized vascular flow voids and cranial nerves appear within normal limits. Mild left maxillary and bilateral ethmoid sinus mucosal thickening. Remaining visualized paranasal sinuses are grossly clear. IMPRESSION: Periventricular and subcortical white matter lesions bilaterally consistent with demyelination and clinical history of MS. No significant change from prior study with no new white matter lesions. No abnormal enhancement to suggest active demyelination No intracranial mass, mass effect or midline shift No acute or recent infarct on diffusion series. JOB #: [id number] Final Signed by: Mario Camp MD Signed (Electronic Signature): 03/12/2023 10:14 am Social History Social History Type Response Tobacco Current everyday tob acco user Tobacco Use:. 1 pack a day per day. Total pack years: 365. Sex Male Patient Care team information Care Team Personnel Name: Frances Dominguez MD Position: No Access Member Role: Primary Care Physician Address: Address: [address] [place] [address] [place] Care Team Related Persons Name: BETSY TORRES Address: Home [address] [place], [place] [id number] [facility]
--- OUTSIDE RECORDS SUMMARY | 2024-01-30 02:04 | XMS_ITS | Continuity of Care Document ---
Author Organization [facility] Address [address] [place] [address] Care Team Providers Care Salon/Spa Manager Name Role Phone Frances Dominguez MD Primary Care Physician [phone] Encounter [facility] NBR [id number] Date(s): 03/09/23 - 03/09/23 [facility] [address] [place], [place] [address] Discharge Disposition: Home Allergies, Adverse Reactions, [...] Member Role: Primary Care Physician Address: Address: [address] [place] [phone] [place] Care Team Related Persons Name: BETSY TORRES Address: Home [address] [place] [id number] [facility]
--- OUTSIDE RECORDS SUMMARY | 2024-01-30 02:04 | XMS_ITS | Referral Summary ---
Author Organization [facility] Address [address] [place] [address] Care Team Providers Care Coal Shoveler Name Role Phone Amie Ike Herrera DNP Primary Care Provider [phone] Social History Tobacco Use Types Packs/Day Years Used Date Smoking Tobacco: Never Assessed Interpersonal Safety Answer Date Record ed Physically Hurt Never 03/19/2020 Verbally Threaten Not on file 03/19/2020 Sex and Gender Information Value Date Recorded Sex Assigned at Not on file Gender Identity Not on file Sexual Orientation Not on file Plan of Treatment Not on file Procedures Procedure Name Priority Date/Time Associated Diagnosis Comments HEPATITIS C AB W REFLEX TO HCV RNA BY PCR Routine 11/30/2019 11:25 EDT from Last 3 Months or Most Recently Relevant to Health Maintenance Results * HEPATITIS C AB W REFLEX TO HCV RNA BY PCR (11/30/2019 11:25 EDT) Hep C Antibody Negative Negative 12/01/2019 9:44 EDT [facility] Blood VENOUS BLOOD / Unknown 11/30/2019 11:25 EDT 11/30/2019 20:32 EDT Provider Outr Resulting Lab CHEMISTRY & BLOOD GAS ORDERABLES [facility] [address] [place] [address] from Last 3 Months or Most Recently Relevant to Health Maintenance Care Teams Coal Shoveler Relationship Specialty Start Date End Date Ike Wynn, DNP [facility] [place] [address] PCP - General 11/24/20
--- OUTSIDE RECORDS SUMMARY | 2024-01-30 02:04 | XMS_ITS | Encounter Summary ---
Author Organization [facility] Address [address] [place] [address] Care Team Providers Care Animal Nutritionist Name Role Phone Ike Wynn DNP Primary Care Provider [phone] Encounter Details Date Type Department Care Team (Late st Contact Info) Description 11/30/2019 Lab Requisition [facility] Pathology & Laboratory Medicine - [address] [address] Outr Resulting Lab, Provider Social History Tobacco Use Types Packs/Day Years [...] RNA BY PCR Routine 11/30/2019 11:25 EDT documented in this encounter Results * HEPATITIS C AB W REFLEX TO HCV RNA BY PCR (11/30/2019 11:25 EDT) Hep C Antibody Negative Negative 12/01/2019 9:44 EDT [facility] Blood VENOUS BLOOD / Unknown 11/30/2019 11:25 EDT 11/30/2019 20:32 EDT Provider Outr Resulting Lab CHEMISTRY & BLOOD GAS ORDERABLES [facility] [address] [place] [address] documented in this encounter Visit Diagnoses Not on filedocumented in this encounter Care Teams Animal Nutritionist Relationship Specialty Start Date End Date Ike Wynn, DNP [address] [place] [address] PCP - General 11/24/20 documented as of this encounter
--- OUTSIDE RECORDS SUMMARY | 2024-01-30 02:04 | XMS_ITS | Continuity of Care Document ---
Author Organization [facility] Address [address] [place] [phone] Care Team Providers Care Hand Bunch Maker Name Role Phone BELEN HU APRN Primary Care Physician Encounter [facility] NBR [id number] Date(s): 09/09/23 - 09/09/[address] [address] [place] Discharge Disposition: Home Allergies, Adverse Reactions, Alerts No Known Allergies Assessment and Plan Future Appointments Medications Ocrevus 300 mg/10 mL intravenous solution [...] Member Role: Primary Care Physician Address: Address: [facility] [address] [place] [facility] [address] Care Team Related Persons Name: BETSY TORRES Address: Home [address] [place], [place] [id number] [facility]
--- OUTSIDE RECORDS SUMMARY | 2024-01-30 02:04 | XMS_ITS | Encounter Summary ---
Author Organization [facility] Address [address] [place] [address] Care Team Providers Care Mixed Livestock Farmer Name Role Phone Amie Sharon Ike Renae HENDERSON Primary Care Provider [phone] Encounter Details Date Type Department Care Team (Late st Contact Info) Description 11/30/2019 Lab Requisition [facility] Pathology & Laboratory Medicine - [address] [address] Outr Resulting Lab, Provider Social History Tobacco [...] Procedure Name Priority Date/Time Associated Diagnosis Comments HIV 1/2 ANTIGEN AND ANTIBODY, 4TH GENERATION Routine 11/30/2019 11:25 EDT documented in this encounter Results * HIV 1/2 ANTIGEN AND ANTIBODY, 4TH GENERATION (11/30/2019 11:25 EDT) HIV 1 and 2 Antibody/p24 Antigen, 4th Generation Negative Negative 12/01/2019 10:03 EDT [facility] Comment: If acute HIV-1 infection is suspected in a high risk ??patient, submit plasma specimen for HIV-1 RNA quantitation test. Fourth Generation assay performed on the Siemens Centaur. Blood VENOUS BLOOD / Unknown 11/30/2019 11:25 EDT 11/30/2019 20:32 EDT Provider Outr Resulting Lab IMMUNOLOGY A ND SEROLOGY ORDERABLES [facility] [address] [place] [address] documented in this encounter Visit Diagnoses Not on filedocumented in this encounter Care Teams Mixed Livestock Farmer Relationship Specialty Start Date End Date Ike Wynn, [facility] [address] [place] [address] [place] [address] PCP - General 11/24/20 documented as of this encounter
--- OUTSIDE RECORDS SUMMARY | 2024-01-30 02:04 | XMS_ITS | Continuity of Care Document ---
Author Organization [facility] Address [address] [place] [address] Care Team Providers Care Supervisor Chassis Assembly Name Role Phone Frances Dominguez MD Primary Care Physician Encounter [facility] NBR [id number] Date(s): 02/25/23 - 02/25/23 [facility] [address] [place], [place] [address] Discharge Disposition: Home Allergies, Adverse [...] Member Role: Primary Care Physician Address: Address: [address] [place] [phone] [place] Care Team Related Persons Name: BETSY TORRES Address: Home [address] [place] [address] [phone] [facility]
--- OUTSIDE RECORDS SUMMARY | 2024-01-30 02:04 | XMS_ITS | Continuity of Care Document ---
Author [facility] Address [address] [place] [phone] Care Team Providers Care Ceramic Tile Installation Helper Name Role Phone BELEN HU APRN Primary Care Physician Encounter [facility] NBR [id number] Date(s): 08/02/23 - 08/02/[address] [address]- Encounter Diagnosis Multiple sclerosis(Final) - Myelitis, unspecified(Final) - Unspecified optic neuritis(Final) - Discharge Disposition: Home or Self Care [...] Laboratory List Name Date CBC w/ Diff 08/02/23 Comprehensive Metabolic Panel 08/02/23 Misc Lab order 08/02/23 Automated Diff 08/02/23 Most recent to oldest [Reference Range]: 1 WBC [4.8-10.8 K/mcL] 9.5 K/mcL (08/02/23 1:16 PM) RBC [4.70-6.10 Million/mcL] 4.48 Million /mcL *LOW* (08/02/23 1:16 PM) Neutro Auto [42.2-75.2 %] 65.5 % (08/02/23 1:16 PM) Lymph Auto [20.5-51.1 %] 22.0 % (08/02/23 1:16 PM) [place] Auto [1.7-9.3 %] 6.6 % (08/02/23 1:16 PM) Basophil Auto [0.0-0.8 %] 1.1 % *HI* (08/02/23 1:16 PM) BUN [7-25 mg/dL] 6 mg/dL *LOW* (08/02/23 1:16 PM) Glucose Level [70-109 mg/dL] 101 mg/dL (08/02/23 1:16 PM) Potassium Level [3.5-5.1 mmol/L] 4.9 mmo l/L (08/02/23 1:16 PM) Baso Absolute [0.0-0.2 K/mcL] 0.1 K/mcL (08/02/23 1:16 PM) MCV [80.0-94.0 fL] 99.2 fL *HI* (08/02/23 1:16 PM) AST [13-39 IntlUnit/L] 71 IntlUnit/L *HI* (08/02/23 1:16 PM) ALT [7-52 IntlUnit/L] 72 IntlUnit/L *HI* (08/02/23 1:16 PM) MCHC [32.0-37.0 g/dL] 34.2 g/dL (08/02/23 1:16 PM) Osmolality [275-295 mOsm/kg] 277 mOsm/kg (08/02/23 1:16 PM) Sodium Level [136-145 mmol/L] 140 mmol/L (08/02/23 1:16 PM) Lymph Absolute [1.2-3.4 K/mcL] 2.1 K/mcL (08/02/23 1:16 PM) Hct [42.0-52.0 %] 44.5 % (08/02/23 1:16 PM) Calcium Level [8.6-10.3 mg/dL] 9.5 mg/dL (08/02/23 1:16 PM) [place] Absolute [0.1-0.6 K/mcL] 0.6 K/mcL (08/02/23 1:16 PM) Albumin Level [3.5-5.7 g/dL] 4.6 g/dL (08/02/23 1:16 PM) Protein Total [6.4-8.9 g/dL] 6.8 g/dL (08/02/23 1:16 PM) MCH [27.0-31.0 pg] 34.0 pg *HI* (08/02/23 1:16 PM) Neutro Absolute [1.4-6.5 K/mcL] 6.2 K/mc L (08/02/23 1:16 PM) Bilirubin Total [0.3-1.0 mg/dL] 0.3 mg/d L (08/02/23 1:16 PM) Hgb [14.0-18.0 g/dL] 15.2 g/dL (08/02/23 1:16 PM) Alk Phos [34-104 IntlUnit/L] 102 IntlUni t/L (08/02/23 1:16 PM) MPV [7.4-10.4 fL] 8.2 fL (08/02/23 1:16 PM) Platelets [130-400 K/mcL] 276 K/mcL (08/02/23 1:16 PM) CO2 [21-31 mmol/L] 25 mmol/L (08/02/23 1:16 PM) Eos Absolute [0.0-0.2 K/mcL] 0.5 K/mcL *HI* (08/02/23 1:16 PM) Chloride Level [98-107 mmol/L] 107 mmol/ L (08/02/23 1:16 PM) RDW-CV [11.5-14.5 %] 16.0 % *HI* (08/02/23 1:16 PM) A/G Ratio [1.0-2.5 g/dL] 2.1 g/dL (08/02/23 1:16 PM) BUN/Creat Ratio [8.0-20.0] 5.5 *LOW* (08/02/23 1:16 PM) Globulin [2.3-3.5 g/dL] 2.2 g/dL *LOW* (08/02/23 1:16 PM) Creatinine Level [0.70-1.30 mg/dL] 1.10 mg/dL (08/02/23 1:16 PM) Anion Gap [3.0-12.0] 8.0 (08/02/23 1:16 PM) Eos, Auto [0.00-3.00 %] 4.80 % *HI* (08/02/23 1:16 PM) eGFR CKD-EPI [>=60 mL/min/1.73 m2] 86 mL /min/1.73 m2 (08/02/23 1:16 PM) Miscellaneous Lab Test See Comments 1 *NA* (08/02/23 1:13 PM) 1Result Comment: Tests completed in January of 2023.------AL Social History Social History Type Response Tobacco Current everyday tob acco user Tobacco Use:. 1 pack a day per day. Total pack years: 365. Sex Male Patient Care team information Care Team Personnel Name: BELEN HU APRN Position: No Access Member Role: Primary Care Physician Address: Address: [address] [place], [place] [address] Care Team Related Persons Name: BETSY TORRES Address: Home [address] [place], [place] [id number] [facility]
--- OUTSIDE RECORDS SUMMARY | 2024-01-30 02:04 | XMS_ITS | Continuity of Care Document ---
Author Organization [facility] Address [address] [place] [id number] Care Team Providers Care Chief Operator Reformer Name Role Phone BELEN HU APRN Primary Care Physician [phone] Encounter [facility] NBR [id number] Date(s): 09/22/23 - 09/22/[address] [address] Discharge Disposition: Home or Self Care Attending Physician: KATERINA Romero Admitting Physician: KATERINA Romero Referring Physician: KATERINA Romero Allergies, Adverse Reactions, Alerts No Known Allergies [...] Temperature Temporal Artery [36-38 Deg C ] 36.7 Deg C (09/22/23 9:06 AM) Peripheral Pulse Rate [60-100 bpm] 74 bp m (09/22/23 9:06 AM) Respiratory Rate [12-24 br/min] 18 br/mi n (09/22/23 9:06 AM) Blood Pressure [90-140/60-90 mmHg] 143/9 1mmHg *HI* (09/22/23 9:06 AM) Mean Arterial Pressure, Cuff [65-140 mmH g] 108 mmHg (09/22/23 9:06 AM) Weight 126.46 kg (09/22/23 9:06 AM) Weight Dosing 126.460 kg (09/22/23 9:06 AM) Height 190.5 cm (09/22/23 9:06 AM) BSA Measured 2.59 m2 (09/22/23 9:06 AM) Body Mass Index 34.85 kg/m2 (09/22/23 9:06 AM) Social History Social History Type Response Tobacco Current everyday tob acco user Tobacco Use:. 1 pack a day per day. Total pack years: 365. Sex Male Patient Care team information Care Team Personnel Name: BELEN HU APRN Position: No Access Member Role: Primary Care Physician Address: Address: [address] [place], [place] [address] Care Team Related Persons Name: BETSY TORRES Address: Home [address] [place], [place] [id number] [facility]
--- OUTSIDE RECORDS SUMMARY | 2024-01-30 02:04 | XMS_ITS | Encounter Summary ---
Author Organization [facility] Address [address] [place] [address] Care Team Providers Care Human Resource Professional Name Role Phone Amie SharonIke campoverde Renae DNP Primary Care Provider + [phone] Encounter Details Date Type Department Care Team (Late st Contact Info) Description 12/09/2020 Lab Requisition [facility] Medicine - [address] [address] Jenny Redmond MD [address] [place] [address] Encounter for other general examination Social History Tobacco Use Types Packs/Day Years [...] Procedure Name Priority Date/Time Associated Diagnosis Comments SURGICAL PATHOLOGY Today 12/08/2020 15 :33 EDT Encounter for other general examination documented in this encounter Results * SURGICAL PATHOLOGY (12/08/2020 15:33 EDT) Note to Patient The following pathology results have been interpreted by your pathologist and may be available to you before your health provider has had the opportunity to review them. Please allow time for your provider to receive these results and explore management options, if applicable. 12/16/2020 10:00 EDT [facility] Final Diagnosis A. 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 - See comment. 12/16/2020 10:00 [facility] Diagnosis Comment The entire appendix has been submitted for histologic review. Histologic review reveals a dilated appendix lined entirely by attenuated epithelium with low-grade dysplasia. The specimen is negative for invasion into the appendiceal wall and negative for high-grade dysplasia. Deeper sections have been reviewed on block (A1). Mucinous cystadenoma (low-grade dysplasia) is identified at the surgical margin which elevates this benign lesion to low risk of recurrence. 12/16/2020 10:00 [facility] Attestation There was significant resident/fellow involvement in the diagnostic evaluation of this case. By the signature below, the attending physician certifies that they have personally conducted a gross and/or microscopic examination of the described specimens and rendered or confirmed the above diagnosis. 12/16/2020 10:00 [facility] at 1000 Clinical History Acute appendicitis 12/16/2020 10:00 [facility] Gross Description A. Received in formalin labelled with proper patient identification (initials M, J) and appendix is an appendix (8.9 cm in length x 1.5 cm in diameter), with a large amount of attached mesoappendix. Lymph nodes are not identified in the mesoappendix. The proximal margin is stapled. The serosa is alicea, smooth, and glistening. The cut surface is alicea yellow , and mottled with petechiae. The average wall thickness is 0.1 cm. A perforation site not identified. The lumen ranges from 1.5 cm to 0.4 cm in diameter. A fecalith not identified. The proximal margin is inked. The section adjacent to the stapled proximal margin, 2 corporate representative cross sections and one half of the longitudinally bisected distal tip are submitted in A1-A2. RUSSELL FRANCO MD PHD 12/10/2020 16:03 The remaining appendix is submitted from distal tip to proximal in A3-A15. RUSSELL FRANCO MD PHD 12/11/2020 14:38 12/16/2020 10:00 [facility] Resident/Eddy w: Russell Franco MD PHD 12/16/2020 10:00 EDT [facility] Performing Lab [facility] 12/16/2020 10:00 EDT [facility] Scanned Images 12/16/2020 10:00 EDT [facility] Tissue ENTIRE APPENDIX / Unknown 12/08/2020 15:33 EDT 12/09/2020 17:59 EDT Jenny Redmond MD PATHOLOGY ORDERABLES [facility] [address] [place] [address] documented in this encounter Visit Diagnoses Diagnosis Encounter for other general examination documented in this encounter Care Teams Human Resource Professional Relationship Specialty Start Date End Date Ike yWnn, [facility] [address] [place] [address] PCP - General 11/24/20 documented as of this encounter
== END 2024-01-30 02:00 | disposition home or self-care (01) ==
LOC: ER 01-30 02:01
PROVIDERS: Emergency Provider Student in an Organized Health Care Education/Training Program; PCP Nurse Practitioner Family
DX: S92.001A Unspecified fracture of right calcaneus, initial encounter for closed fracture (principal); J45.909 Unspecified asthma, uncomplicated; G35 Multiple sclerosis; F17.210 Nicotine dependence, cigarettes, uncomplicated; X50.1XXA Overexertion from prolonged static or awkward postures, initial encounter; Y93.39 Activity, other involving climbing, rappelling and jumping off; Y92.89 Other specified places as the place of occurrence of the external cause
CPT/HCPCS: 99283; 73610; 73630; J1885; J2270